=== PATIENT | male | born 1965 | race Hispanic/Latino ===

== ENCOUNTER 2016-07-26 19:07 | Observation (INO) | payer MEDICARE, MEDICAID ==
[2016-07-26 19:07] VITALS: BMI 28.7
--- NOTE | 2016-07-26 19:25 | C.PDOC ---
History Of Present Illness <Cristino Cohen - Last Filed: 07/27/16 00:46> <Cortez English Rock - Last Filed: 07/27/16 05:42> A 51 y/o male presents to the ER for ETOH Intoxication [employer]. Pt admits to drinking ETOH today. Pt denies suicidal or homicidal ideation or any physical complaint at this time. (Cristino Cohen) History Per: Patient History/Exam Limitations: intoxication Onset/Duration Of Symptoms: Hrs Current Symptoms Are (Timing): Still Present Suicide/Self Injury Attempted (Context): None Modifying Factor(s): Alcohol Severity: Mild Associated Symptoms: denies: Suicidal Thoughts, Suicidal Plan Involuntary Hold By: None Recent travel outside of the [place]: No Additional History Per: Patient <Cristino Cohen - Last Filed: 07/27/16 00:46> <Cortez English - Last Filed: 07/27/16 05:42> Time Seen by Provider: 07/26/16 19:15 Past Medical History Reviewed: Historical Data, Nursing Documentation, Vital Signs - Medical History PMH: Bipolar Disorder, Bronchitis, COPD, Depression, Fractures (ribs fractured in 2003) Denies: Anxiety, Diabetes, Hepatitis, HIV, HTN, Personality Disorder, Chronic Kidney Disease, Schizophrenia, Seizures, Sexually Transmitted Disease Surgical History: Hernia Repair (umbilical and abdominal) Family History: States: Unknown Family Hx - Social History Hx Tobacco Use: Yes Hx Alcohol Use: Yes Hx Substance Use: Yes - Immunization History Hx Tetanus Toxoid Vaccination: No Hx Influenza Vaccination: No Hx Pneumococcal Vaccination: No <Cristino Cohen - Last Filed: 07/27/16 00:46> Review Of Systems Constitutional: Positive for: Other (ETOH intoxication). Negative for: Fever, Chills Cardiovascular: Negative for: Chest Pain, Palpitations Respiratory: Negative for: Shortness of Breath Gastrointestinal: Negative for: Nausea, Vomiting, Abdominal Pain, Diarrhea Psych: Negative for: Suicidal ideation, Withdrawal <Cristino Cohen - Last Filed: 07/27/16 00:46> Physical Exam - Physical Exam Appears: No Acute Distress, Other (ETOH intoxicated. + AOB) Skin: Warm, Dry, No Rash Head: Atraumatic, Normacephalic Eye(s): bilateral: Normal Inspection, PERRL Oral Mucosa: Moist Neck: Supple Chest: Symmetrical, No Tenderness Cardiovascular: Rhythm Regular Respiratory: Other (Clear to auscultation bilaterally) Gastrointestinal/Abdominal: Soft, No Tenderness, No Distention Back: No CVA Tenderness Extremity: No Deformity, No Swelling Pulses: Left Radial: Normal (Radial pulse 2+ bilaterally.), Right Radial: Normal (Radial pulse 2+ bilaterally.) Neurological/Psych: Other (Alert and awake, no focal deficit) <Cristino Cohen - Last Filed: 07/27/16 00:46> Medical Decision Making <Cristino Cohen - Last Filed: 07/27/16 00:46> <Cortez English - Last Filed: 07/27/16 05:42> Medical Decision Making: Impression: 51 y/o male comes in for ETOH intoxication today Plans: -ED Obs -Reassess (Cristino Cohen) ED OBSERVATION Date of observation admission: 07/26/16 Time of observation admission: 19:36 <Cristino Cohen - Last Filed: 07/27/16 00:46> <Cortez English - Last Filed: 07/27/16 05:42> - Observation admission statement Patient is being placed in observation because:: ETOH intoxication (Cristino Cohen) - Goals of Observation Goals of observation are:: ETOH Sobriety (Cristino Cohen) - Progress Note Progress Note: 1936 No acute distress. 2130 Sleeping, no acute distress. 2330 Intoxicated, no acute distress. 0046 Sleeping, remains intoxicated. Will sign out to ER night team. (Cristino Cohen) Disposition <Cristino Cohen - Last Filed: 07/27/16 00:46> Counseled Patient/Family Regarding: Diagnosis - Disposition Disposition Time: 05:42 - POA Present On Arrival: None <Cortez English - Last Filed: 07/27/16 05:42> - Disposition Disposition: HOME/ ROUTINE Condition: STABLE - Clinical Impression Clinical Impression: Alcohol abuse - Scribe Statement The provider has reviewed the documentation as recorded by the Scribe <Cristino Cohen - Last Filed: 07/27/16 00:46> <Cortez English - Last Filed: 07/27/16 05:42> - Scribe Statement Gricelda ratliff All medical record entries made by the Scribe were at my direction and personally dictated by me. I have reviewed the chart and agree that the record accurately reflects my personal performance of the history, physical exam, medical decision making, and the department course for this patient. I have also personally directed, reviewed, and agree with the discharge instructions and disposition. (Vicki,Cristino Campos)
[2016-07-27 05:40] VITALS: BP 146/86; PULSE 97; RESP 20; TEMP 98.6; O2SAT 98
== END 2016-07-27 05:41 | disposition home or self-care (01) ==
LOC: C.ER 19:07 → C.9OBSV 19:36
PROVIDERS: ADMIT Student in an Organized Health Care Education/Training Program; ATTEND Student in an Organized Health Care Education/Training Program
DX: F10.129 Alcohol abuse with intoxication, unspecified (principal); Z87.891 Personal history of nicotine dependence; J44.9 Chronic obstructive pulmonary disease, unspecified; F31.9 Bipolar disorder, unspecified
CPT/HCPCS: 96372; 99284; G0378; J1630; J2060

== ENCOUNTER 2016-07-31 23:27 | Emergency (ER) | payer MEDICARE, MEDICAID ==
[2016-07-31 23:27] VITALS: BMI 28.7
[2016-07-31 23:42] VITALS: BP 117/75; PULSE 85; RESP 20; TEMP 98.6; O2SAT 96
--- NOTE | 2016-08-01 01:31 | C.PDOC ---
History Of Present Illness Patient is a 51 year old male who presents to the ER requesting detox from ETOH and heroin. Patient states he uses both daily and makes note that he sniffs the heroin. Denies any physical complaints at this time. Chief Complaint (Nursing): Substance Abuse History Per: Patient History/Exam Limitations: no limitations Onset/Duration Of Symptoms: Hrs Current Symptoms Are (Timing): Still Present Suicide/Self Injury Attempted (Context): None Modifying Factor(s): Alcohol, Narcotics Associated Symptoms: denies: Depression, Suicidal Thoughts, Suicidal Plan Involuntary Hold By: None Recent travel outside of the [place]: No Past Medical History Reviewed: Historical Data, Nursing Documentation, Vital Signs Vital Signs: Last Vital Signs Temp 98.6 F 07/31/16 23:37 Pulse 85 07/31/16 23:37 Resp 20 07/31/16 23:37 BP 117/75 07/31/16 23:37 Pulse Ox 96 08/01/16 01:37 - Medical History PMH: Back Problems (chronic), Bipolar Disorder, Bronchitis, COPD, Depression, Fractures (ribs fractured in 2003) Surgical History: Hernia Repair (umbilical and abdominal) - [email or web address] Procedures ALCOHOL DETOXIFICATION (02/09/14) EXCISE CORD/EPID LES NEC (11/10/13) GROUP PSYCHOTHERAPY (09/13/15) MEDICATION MANAGEMENT (09/13/15) NON-INVASIVE MECHANICAL VENTILATION (06/27/12) OTH & OPEN REP OTH HERNIA OF ANTER ABD WALL W GRF OR PROSTH (06/27/12) OTH & OPEN REPAIR INDIRECT INGUINAL HERNIA W GRFT OR PROSTH (11/10/13) Family History: States: Unknown Family Hx - Social History Hx Tobacco Use: Yes Hx Alcohol Use: Yes Hx Substance Use: Yes - Immunization History Hx Tetanus Toxoid Vaccination: No Hx Influenza Vaccination: No Hx Pneumococcal Vaccination: No Review Of Systems Constitutional: Negative for: Fever, Chills Gastrointestinal: Negative for: Nausea, Vomiting, Diarrhea Physical Exam - Physical Exam Appears: Non-toxic, No Acute Distress Skin: Normal Color, Warm, Dry Head: Atraumatic, Normacephalic Oral Mucosa: Moist Chest: Symmetrical, No Tenderness Cardiovascular: Rhythm Regular, No Murmur Respiratory: Normal Breath Sounds, No Rales, No Rhonchi, No Wheezing Gastrointestinal/Abdominal: Soft, No Tenderness Neurological/Psych: Oriented x3, Normal Speech, Normal Cognition ED Course And Treatment O2 Sat by Pulse Oximetry: 96 (Room air) Pulse Ox Interpretation: Normal Progress Note: Crisis was consulted, no detox beds are available at this time, patient given referral for other detox sites. Disposition - Disposition Referrals: [facility] [Outside] [facility] [Outside] Disposition: HOME/ ROUTINE Disposition Time: 23:55 Condition: GOOD Additional Instructions: Yhank you for letting us take care of you today. The emergency medical care you received today was directed at your acute symptoms. If you were prescribed any medication, please fill it and take as directed. It may take several days for your symptoms to resolve. Return to the Emergency Department if your symptoms worsen, do not improve, or if you have any other problems. Please contact your doctor or call one of the physicians/clinics you have been referred to that are listed on the Patient Visit Information form that is included in your discharge packet. Bring any paperwork you were given at discharge with you along with any medications you are taking to your follow up visit. Our treatment cannot replace ongoing medical care by a primary care provider (PCP) outside of the emergency department. Thank you for allowing the [facility] team to be part of your care today. Call the hospital in the morning to check on availability of detox beds. Instructions: Polysubstance Abuse (ED) - Clinical Impression Clinical Impression: Drug dependence - Scribe Statement The provider has reviewed the documentation as recorded by the Scriblandy Perkins All medical record entries made by the Scribe were at my direction and personally dictated by me. I have reviewed the chart and agree that the record accurately reflects my personal performance of the history, physical exam, medical decision making, and the department course for this patient. I have also personally directed, reviewed, and agree with the discharge instructions and disposition.
== END 2016-08-01 00:13 | disposition home or self-care (01) ==
LOC: C.ER 23:27
DX: F19.20 Other psychoactive substance dependence, uncomplicated (principal)

== ENCOUNTER 2016-08-04 23:37 | Emergency (ER) | payer MEDICARE, MEDICAID ==
[2016-08-04 23:37] VITALS: BMI 28.7
[2016-08-04 23:56] VITALS: BP 90/48; PULSE 96; RESP 20; TEMP 98.4; O2SAT 96
== END 2016-08-05 | disposition left against medical advice (07) ==
LOC: C.ER 23:37
DX: Z02.89 Encounter for other administrative examinations (principal); Z00.00 Encounter for general adult medical examination without abnormal findings

== ENCOUNTER 2016-08-07 14:29 | Inpatient (IN) | payer MEDICARE, MEDICAID ==
[2016-08-07 14:29] VITALS: BMI 28.7
[2016-08-07 15:23] LABS: BASO # 0.1 K/uL (0.0-0.2); BASO % 0.6 % (0.0-2.0); EOS # 0.2 K/uL (0.0-0.7); EOS % 1.7 % (0.0-4.0); HEMATOCRIT 46.1 % (35.0-51.0); LYMPH % 28.7 % (20.0-40.0); MEAN CELL VOLUME 94.3 fL (80.0-94.0); MEAN CORPUSCULAR HEMOGLOBIN 31.7 pg (27.0-31.0); MEAN CORPUSCULAR HGB CONC 33.6 g/dL (33.0-37.0); MEAN PLATELET VOLUME 8.5 fL (7.2-11.7); MONO # 1.1 K/uL (0.0-0.8); MONO % 10.6 % (0.0-10.0); RED CELL DISTRIBUTION WIDTH 16.8 % (11.5-14.5); WHITE BLOOD COUNT 10.6 K/uL (4.8-10.8)
[2016-08-07 15:32] LABS: CHLORIDE 95 mmol/L (98-107)
[2016-08-07 15:33] LABS: POTASSIUM 3.3 mmol/L (3.6-5.2); SODIUM 130 mmol/L (132-148)
[2016-08-07 15:35] LABS: ALB/GLOB RATIO 1.3 (1.0-2.1); ALKALINE PHOSPHATASE 104 U/L (38-126); AST/SGOT 110 U/L (17-59); BILIRUBIN,TOTAL 0.9 mg/dL (0.2-1.3); CARBON DIOXIDE 20 mmol/L (22-30); GFR AFRICAN-AMERICAN > 60; TOTAL PROTEIN 6.7 g/dL (6.3-8.3)
[2016-08-07 15:36] LABS: ALCOHOL SERUM 293 mg/dl (0-10); ALT/SGPT 122 U/L (21-72); BLOOD UREA NITROGEN 8 mg/dL (9-20); CALCIUM 8.2 mg/dl (8.6-10.4); GLUCOSE,RANDOM 99 mg/dL (75-110)
[2016-08-07 15:55] LABS: RBC URINE 5 /hpf (0-3); URINE BACTERIA RARE (<OCC); URINE BILIRUBIN NEGATIVE (NEGATIVE); URINE BLOOD 1+ (NEGATIVE); URINE COLOR Yellow (YELLOW); URINE GLUCOSE (UA) NORMAL (Normal); URINE HYALINE CAST >20 /lpf (0-2); URINE KETONE NEGATIVE (NEGATIVE); URINE LEUKOCYTE ESTERASE TRACE Leu/uL (Negative); URINE UROBILINOGEN NORMAL mg/dL (0.2-1.0); WBC URINE 1 /hpf (0-5)
[2016-08-07 15:58] LABS: URINE PROTEIN TRACE mg/dL (NEGATIVE)
[2016-08-07] MEDS ORDERED: Potassium Chloride 20 mEq ER Tab PO STA (16:41)
--- NOTE | 2016-08-07 16:44 | C.PDOC ---
History Of Present Illness <Radha Jones - Last Filed: 08/07/16 18:45> <Cortez English - Last Filed: 08/07/16 20:26> 51 y/o male with Hx of ETOH abuse and Heroin use presents to ED requesting Detox and complaints of mild lower back pain. Patient reports last drink was 2 hours ago and last Heroin use was 2 days ago. Patient denies n/v/d, numbness, weakness, tremors or any other complaints at this time. (Radha Jones) History Per: Patient History/Exam Limitations: no limitations Onset/Duration Of Symptoms: Days Modifying Factor(s): Alcohol <Radha Jones - Last Filed: 08/07/16 18:45> <Cortez English - Last Filed: 08/07/16 20:26> Time Seen by Provider: 08/07/16 14:52 Chief Complaint (Nursing): Substance Abuse Past Medical History Reviewed: Historical Data, Nursing Documentation, Vital Signs - Medical History PMH: Back Problems (chronic), Bipolar Disorder, Bronchitis, COPD, Depression, Fractures (ribs fractured in 2003) Surgical History: Hernia Repair (umbilical and abdominal) Family History: States: Unknown Family Hx - Social History Hx Tobacco Use: Yes Hx Alcohol Use: Yes Hx Substance Use: Yes - Immunization History Hx Tetanus Toxoid Vaccination: No Hx Influenza Vaccination: No Hx Pneumococcal Vaccination: No <Radha Jones - Last Filed: 08/07/16 18:45> Review Of Systems Except As Marked, All Systems Reviewed And Found Negative. Constitutional: Negative for: Fever, Chills Gastrointestinal: Negative for: Nausea, Vomiting, Diarrhea Skin: Negative for: Rash Neurological: Negative for: Weakness, Numbness Psych: Negative for: Anxiety <Radha Jones - Last Filed: 08/07/16 18:45> Physical Exam - Physical Exam Appears: Well, No Acute Distress Skin: Normal Color, Warm, No Rash Head: Atraumatic, Normacephalic Eye(s): bilateral: Normal Inspection, PERRL, EOMI Oral Mucosa: Moist Neck: Normal ROM, No Midline Cervical Tenderness, No Paracervical Tenderness, Supple Chest: Symmetrical, No Tenderness Cardiovascular: Rhythm Regular, No Murmur Respiratory: Normal Breath Sounds, No Rales, No Rhonchi, No Wheezing Gastrointestinal/Abdominal: Soft, No Tenderness, No Guarding, No Rebound Back: No CVA Tenderness, No Vertebral Tenderness, No Paraspinal Tenderness Extremity: Normal ROM, Capillary Refill (<2 seconds), No Swelling Pulses: Left Dorsalis Pedis: Normal, Right Dorsalis Pedis: Normal Neurological/Psych: Oriented x3, Normal Speech, Normal Motor, Normal Sensation Gait: Steady <Radha Jones - Last Filed: 08/07/16 18:45> ED Course And Treatment - Laboratory Results Result Diagrams: 08/07/16 15:19 08/07/16 15:19 O2 Sat by Pulse Oximetry: 100 (RA) Pulse Ox Interpretation: Normal <Radha Jones - Last Filed: 08/07/16 18:45> - Laboratory Results Result Diagrams: 08/07/16 15:19 08/07/16 15:19 <Cortez English - Last Filed: 08/07/16 20:26> Medical Decision Making <Radha Jones - Last Filed: 08/07/16 18:45> <Cortez English - Last Filed: 08/07/16 20:26> Medical Decision Making: The potassium is slightly low, potassium tab given. Sodium is only mildly low, will not treat. Patient is medically cleared. Patient given meal and juice in the ED, The patient was evaluated by the crisis team and patient is pending sobriety for detox admission. (Radha Jones) Disposition - Disposition Disposition Time: 18:44 <Radha Jones - Last Filed: 08/07/16 18:45> Discussed With : Jennifer Amin Doctor Will See Patient In The: Hospital Counseled Patient/Family Regarding: Diagnosis - Disposition Disposition Time: 20:26 <Cortez English - Last Filed: 08/07/16 20:26> - Disposition Disposition: HOSPITALIZED Condition: STABLE - Clinical Impression Clinical Impression: Alcohol dependence, Opiate dependence - PA / TRANSIT SPECIALIST / Resident Statement MD/DO has reviewed & agrees with the documentation as recorded. - Scribe Statement The provider has reviewed the documentation as recorded by the Scribe <Radha Jones - Last Filed: 08/07/16 18:45> <Cortez English - Last Filed: 08/07/16 20:26> - Scribe Statement Deena Ayoub All medical record entries made by the Scribe were at my direction and personally dictated by me. I have reviewed the chart and agree that the record accurately reflects my personal performance of the history, physical exam, medical decision making, and the department course for this patient. I have also personally directed, reviewed, and agree with the discharge instructions and disposition. (Radha Jones) Physician Patient Turnover Patient Signed Over To: Cortez English Handoff Comments: Pending sobriety and disposition <Radha Jones - Last Filed: 08/07/16 18:45>
[2016-08-07] MEDS ORDERED: Potassium Chloride 20 mEq ER Tab PO ONE (16:48)
[2016-08-07] MEDS ORDERED: Buprenorphine Hydrochloride 2 mg SL ONE ×2 (21:16→22:20)
[2016-08-07 21:38] VITALS: RESP 18
[2016-08-08] MEDS: Buprenorphine Hydrochloride 2 mg SL SCH (10:42)
[2016-08-09] MEDS: Buprenorphine Hydrochloride 2 mg SL SCH (09:28)
--- NOTE | 2016-08-09 20:57 | PCM.PSYCH ---
Initial Psychiatric Evaluation - Initial Psychiatric Evaluation Legal Status: Capacity Chief Complaint (in patient's own words): i need to get off heroin! Patient's Reaction to Hospitalization: I am glad I could get a bed History of Present Illness and Precipitating Events: Pt is a 51 years old single domiciled malewhose drug of choice is heroin. he had been prescribed perocet 10 mg po qid but he did not use them appropriately. he started using heroin about 8 months ago. he uses on the average 15 bags of heroin a day. he also abuses alcohol. he started drinking age 11 and it became a problem in hius 40s. he drink only for detox, but he is prescribed xanax 1 mg po tid and ambien 10 mg po qhs. it is unclear if this is by pcp ora psychiatrist. he has been in 2 formal detoxes one in [place] and one at [facility]. he drinks a case of beer a day and seveeral fireballs day. he states he was in but for detox only. he has been at 2 other detoxes in [place] and at [facility]. Parents are . He has 5 sisters and he is the oldest. mother was an alcoholic. maternal grandfather was ikn a psych hospital but pt does not know why. his father frfom alcohol. pt has no history. he was charged with assault and spent a wseek in penitentiary. he states he has no medical problems. he is prescribed ambien and xanax but unclear by who.pt went up to 3rd grade. 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 Current Medications: Active Medications Generic Name Dose Route Start Last Admin Trade Name Grupoq PRN Reason Stop Dose Admin Buprenorphine HCl 4 mg 08/08/16 10:00 08/09/16 09:28 Subutex SL 08/11/16 09:59 4 mg DAILY GRETA Administration Taper Gabapentin 300 mg 08/07/16 21:03 08/09/16 17:51 Neurontin PO 300 mg TID GRETA Administration Hydroxyzine HCl 25 mg 08/07/16 21:05 08/09/16 14:54 Atarax PO 25 mg Q6 PRN Administration Anxiety Lorazepam 1 mg 08/07/16 21:03 08/09/16 11:15 Ativan PO 1 mg Q6 PRN Administration alcohol withdrawal Lorazepam 1 mg 08/09/16 12:00 08/09/16 17:52 Ativan PO 08/12/16 11:59 1 mg BID GRETA Administration Taper Nicotine 1 patch 08/08/16 10:00 08/09/16 09:28 Nicoderm Cq TD 1 patch DAILY GRETA Administration Trazodone HCl 50 mg 08/07/16 21:03 08/08/16 22:22 Desyrel PO 50 mg HS PRN Administration Insomnia Past Psychiatric History - Past Psychiatric History Prior Psychiatric Treatment: see hpi Pertinent Medical Hx (Current Medical&Sleep Prob, Allergies): Allergies Allergy/AdvReac Type Severity Reaction Status Date / Time No Known Allergies Allergy Verified 08/07/16 14:37 Oxycodone HCl/Acetaminophen [Percocet 325 mg-7.5 mg] 1 tab PO PRN PRN 09/01/15 Zolpidem [Ambien] 5 mg PO HS 09/13/15 Gabapentin [Neurontin] 100 mg PO BID #30 cap 09/17/15 Review of Systems - Constitutional Constitutional: Chills, Sweats, Malaise - EENT Eyes: UNREMARKABLE Ears: UNREMARKABLE Nose/Mouth/Throat: UNREMARKABLE - Cardiovascular Cardiovascular: UNREMARKABLE - Respiratory Respiratory: UNREMARKABLE - Gastrointestinal Gastrointestinal: Cramping, Diarrhea - Genitourinary Genitourinary: UNREMARKABLE - Reproductive: Male Reproductive:Male: UNREMARKABLE - Musculoskeletal Musculoskeletal: Arthralgias, Myalgias - Integumentary Integumentary: UNREMARKABLE - Neurological Neurological: UNREMARKABLE - Psychiatric Psychiatric: UNREMARKABLE - Endocrine Endocrine: UNREMARKABLE - Hematologic/Lymphatic Hematologic: UNREMARKABLE Mental Status Examination - Personal Presentation Personal Presentation: Looks stated age - Affect Affect: Constricted - Motor Activity Motor Activity: Calm - Reliability in Providing Information Reliability in Providing Information: Good - Speech Speech: Organized, Coherent - Mood Mood: Anxious - Formal Thought Process Formal Thought Process: No Impairment - Obsessions/Compulsions Obsessions: None Compulsions: None - Cognitive Functions Orientation: Person, Place, Situation, Time Sensorium: Alert Attention/Concentration: Attentive Abstract Thinking: Broadbent Estimate of Intelligence: Average Judgement: Intact, as evidence by: Good judgement, Intact, as evidence by: Insight regarding need for hospitalization Memory: Recent intact, as evidence by: Ability to recall events of the day, Remote intact, as evidenced by: Abilit to recall sig. life events - Risk Risk: Withdrawal - Strength & Assets Inventory Strength & Assets Inventory: Intelligence, Employment history - Limitations Limitations: Living alone DSM 5 DX - DSM 5 DSM 5 Diagnosis: opiate withdraqal opiate usec disorder severe alcohol withdrawal alcohol use disorder - Recommended/Plan of Treatment Treatment Recommendations and Plan of Treatment: opiate withdrawal subutex groups supportive psychotherapy [place] CBT opiate use disorder groups, [place] CBT supportive psychotherapy alcohol withdrawal ativan groups supportive psychotherapy [place] CBT alcohol use disorder supportive psychotherapy groups Projected ELOS: 5 days Prognosis: fair with treatment Discharge Plan and Discharge Criteria: no acwithdrawal symptoms - Smoking Cessation Smoking Cessation Initiated: Yes
--- NOTE | 2016-08-09 21:11 | PCM.PYCHPN ---
Psychiatric Progress Note - Psychiatric Progress Note Patient seen today, length of contact: 15 min Patient Chief Complaint: i need to get off heroin! Problems Identified/Issues Discussed: withdrawal symp=toms PAWS triggers Medical Problems: nothing acute Diagnostic Results: reviewed DSM 5 Symptoms Update: anxious Medication Change: Yes (subutex ativrs) Medical Record Reviewed: Yes Mental Status Examination - Cognitive Function Orientation: Person, Place, Situation, Time Memory: Intact Attention: WNL Concentration: WNL Association: WNL Fund of Knowledge: WNL - Mood Mood: Anxious - Affect Affect: Broad - Speech Speech: Appropriate - Formal Thought Process Formal Thought Process: No Impairment - Suicidal Ideation Suicidal Ideation: No - Homicidal Ideation Homicidal Ideation: No Goal/Treatment Plan - Goal/Treatment Plan Need for Continued Stay: Discharge may exacerbated symptoms Progress Toward Problem(s) and Goals/Treatment Plan: opiate withdrawal subutex groups supportive psychotherapy [place] CBT opiate use disorder groups, [place] CBT supportive psychotherapy alcohol withdrawal ativan groups supportive psychotherapy [place] CBT alcohol use disorder supportive psychotherapy groups Estimated Date of D/C: 08/11/16 - Smoking Cessation Smoking Cessation Initiated: Yes
[2016-08-10] MEDS: Buprenorphine Hydrochloride 2 mg SL SCH (09:54)
--- NOTE | 2016-08-10 14:05 | PCM.PYCHPN ---
Psychiatric Progress Note - Psychiatric Progress Note Patient seen today, length of contact: 17 min Patient Chief Complaint: "I need help" Problems Identified/Issues Discussed: The pt is seen, chart reviewed, case discussed with staff. Support given, CBT and OK used briefly No new symptoms reported, improving slowly and needs some more time No SEs from medications, risks discussed. After care discussed - interested in IOP at [facility], incl. SBX tx or Vivitrol. He showed the parts data writer his scrotum which had a huge swelling. Uro consult and USG to be done. Medication Change: Yes (detox changes daily) Medical Record Reviewed: Yes Mental Status Examination - Cognitive Function Orientation: Person, Place, Situation, Time Memory: Intact Attention: WNL Concentration: WNL Association: WNL Fund of Knowledge: WNL - Mood Mood: Anxious - Affect Affect: Broad - Speech Speech: Appropriate - Formal Thought Process Formal Thought Process: No Impairment - Suicidal Ideation Suicidal Ideation: No - Homicidal Ideation Homicidal Ideation: No Goal/Treatment Plan - Goal/Treatment Plan Need for Continued Stay: Discharge may exacerbated symptoms, Severe functional impairment Progress Toward Problem(s) and Goals/Treatment Plan: Continue detox Support and psychoed [place] and CBT Referral by counselors Attend groups and activities Estimated Date of D/C: 08/12/16
--- NOTE | 2016-08-10 17:08 | US ---
HISTORY: Enlarged Right Testicle TECHNIQUE: Realtime sonography through the scrotum with color and doppler flow. COMPARISON: Testicular ultrasound performed 11/09/13 FINDINGS: RIGHT TESTICLE: Measures 5.0 x 2.3 x 2.6 cm. Homogeneous echotexture. Blood flow is demonstrated. RIGHT EPIDIDYMIS: Not visualized. LEFT TESTICLE: Measures 3.5 x 2.3 x 2.3 cm. Heterogeneous echotexture. Blood flow is demonstrated. LEFT EPIDIDYMIS: Measures approximately 1.6 x 0.9 x 0.9 cm. HYDROCELE: Simple left-sided hydrocele. Complex right large hydrocele containing innumerable mobile foci/internal echoes. VARICOCELE: Left-sided varicocele. OTHER FINDINGS: None. IMPRESSION: Complex large right sided hydrocele. Simple small to moderate left-sided hydrocele. Correlate clinically. Left-sided varicocele. The right epididymis is not visualized.
[2016-08-10 17:57] LABS: CHLORIDE 99 mmol/L (98-107); POTASSIUM 4.3 mmol/L (3.6-5.2); SODIUM 133 mmol/L (132-148)
[2016-08-10 17:59] LABS: GFR AFRICAN-AMERICAN > 60
[2016-08-10 18:00] LABS: ALB/GLOB RATIO 1.1 (1.0-2.1); ALKALINE PHOSPHATASE 121 U/L (38-126); ALT/SGPT 78 U/L (21-72); AST/SGOT 69 U/L (17-59); BILIRUBIN,TOTAL 0.4 mg/dL (0.2-1.3); BLOOD UREA NITROGEN 26 mg/dL (9-20); CALCIUM 8.9 mg/dl (8.6-10.4); CARBON DIOXIDE 27 mmol/L (22-30); GLUCOSE,RANDOM 89 mg/dL (75-110); TOTAL PROTEIN 6.5 g/dL (6.3-8.3)
[2016-08-10 18:01] LABS: MAGNESIUM 1.8 mg/dL (1.6-2.3)
[2016-08-11] MEDS ORDERED: Buprenorphine Hydrochloride 2 mg SL ONE (09:49)
--- NOTE | 2016-08-11 23:52 | PCM.PYCHPN ---
Psychiatric Progress Note - Psychiatric Progress Note Patient seen today, length of contact: 16 min Patient Chief Complaint: "I am still withdrawing" Problems Identified/Issues Discussed: The pt is seen, chart reviewed, case discussed with staff. The pt is compliant with medications and reports no side-effects. Symptoms are improving but needs more time to stabilize. After care discussed, support and psychoeducation given. USG done and urology contacted again - outpt f/u recommended (plus few more tests) Medication Change: Yes (detox changes daily) Medical Record Reviewed: Yes Mental Status Examination - Cognitive Function Orientation: Person, Place, Situation, Time Memory: Intact Attention: WNL Concentration: WNL Association: WNL Fund of Knowledge: WNL - Mood Mood: Anxious - Affect Affect: Broad - Speech Speech: Appropriate - Formal Thought Process Formal Thought Process: No Impairment - Suicidal Ideation Suicidal Ideation: No - Homicidal Ideation Homicidal Ideation: No Goal/Treatment Plan - Goal/Treatment Plan Need for Continued Stay: Discharge may exacerbated symptoms, Severe functional impairment Progress Toward Problem(s) and Goals/Treatment Plan: Continue detox Support and psychoed [place] and CBT Referral by counselors Attend groups and activities Follow up with uro Estimated Date of D/C: 08/12/16
--- NOTE | 2016-08-12 09:32 | PCM.PYCHDC ---
Mental Status Examination - Mental Status Examination Orientation: Person, Place, Situation, Time Memory: Intact Mood: Anxious Affect: Constricted Speech: Appropriate Attention: WNL Concentration: Poor Association: WNL Fund of Knowledge: WNL Formal Thought Process: No Impairment Suicidal Ideation: No Current Homicidal Ideation?: No Discharge Summary - Discharge Note Reason for Hospitalization: Opioid and alcohol detox Laboratory Data: Abnormal Lab Results 08/11/16 08/11/16 08/11/16 14:04 18:11 18:11 Alpha Fetoprotein 4.1 Beta HCG, Quant < 2.39 Urine HCG, Qual Negative Consultations:: List each consultation separately and include: 1. Reason for request. 2. Findings. 3. Follow-up Summary of Hospital Course include:: 1. Description of specific treatment plan utilized for patients during their course of treatmen. 2. Summarize the time- course for resolution of acute symptoms and/or regressed behaviors. 3. Describe issues identified and worked on during hospitalization. 4. Describe medication utilized. 5. Describe medical problems identified and treated. 6. Reassessment of suicide risk Summary of Hospital Course: The pt was admitted and started on treatment with psychotherapy, support, psychoeducation and medications. IL and CBT used. The pt attended groups and activities, as well as milieu therapy. All the risks and benefits of medications are discussed and the patient understood and agreed. After care discussed with the patient. He will go to [facility] he also had a huge cystocel in his scrotum and uro consulted and will f/iu as an outpt - Final Diagnosis (DSM 5) Condition upon Discharge: STABLE DSM 5: opiate withdraqal opiate use disorder severe alcohol withdrawal alcohol use disorder - severe Anxiety d/o - unspecified Disposition: HOME/ ROUTINE Follow-up Treatment Plan: Continue below medications after discharge. Follow after care plan as discussed. Use relapse prevention skills Return to ER or call 911 if suicidal, homicidal or symptoms relapse. Stay away from stress, alcohol and drugs. See primary doctor once a year. See urologist, Dr Hayden on 08/12 Prescriptions/Medication Reconciliation: Gabapentin [Neurontin] 300 mg PO TID #90 cap traZODone [Desyrel] 50 mg PO HS PRN #30 tab PRN Reason: Insomnia - Smoking Cessation Smoking Cessation Medication prescribed: No - Antipsychotic Medications Pt discharged on 2 or more routine antipsychotic medications: No
[2016-08-12 11:05] VITALS: BP 118/74; PULSE 78; TEMP 98; O2SAT 99
== END 2016-08-12 10:15 | disposition home or self-care (01) | DRG 895 ==
LOC: C.ER 14:29 → C.7D 20:27
PROVIDERS: ADMIT Psychiatry & Neurology Psychiatry; ATTEND Psychiatry & Neurology Psychiatry
PROC: HZ2ZZZZ Detoxification Services for Substance Abuse Treatment (ICD-10-PCS; principal; 2016-08-07)
PROC: HZ52ZZZ Individual Psychotherapy for Substance Abuse Treatment, Cognitive-Behavioral (ICD-10-PCS; 2016-08-07)
PROC: HZ59ZZZ Individual Psychotherapy for Substance Abuse Treatment, Supportive (ICD-10-PCS; 2016-08-07)
PROC: HZ56ZZZ Individual Psychotherapy for Substance Abuse Treatment, Psychoeducation (ICD-10-PCS; 2016-08-07)
DX: F11.23 Opioid dependence with withdrawal (principal); F31.9 Bipolar disorder, unspecified; F10.230 Alcohol dependence with withdrawal, uncomplicated; J44.9 Chronic obstructive pulmonary disease, unspecified; M54.5 Low back pain; E87.6 Hypokalemia; F41.9 Anxiety disorder, unspecified; Z81.1 Family history of alcohol abuse and dependence; Z87.891 Personal history of nicotine dependence

== ENCOUNTER 2016-11-23 23:10 | Emergency (ER) | payer MEDICARE ==
[2016-11-23 23:10] VITALS: BMI 28.7
[2016-11-23 23:14] VITALS: BP 126/78; PULSE 88; RESP 16; TEMP 97.5; O2SAT 96
[2016-11-23] MEDS ORDERED: Bacitracin 500 Units/gm Oint Foilpak UD ONE (23:34)
--- NOTE | 2016-11-24 00:13 | CT ---
EXAM: CT Head Without Intravenous Contrast CLINICAL HISTORY: 51 years old, male; Pain; Headache; Additional info: Injury, intoxication TECHNIQUE: Axial computed tomography images of the head/brain without intravenous contrast. All CT scans at this facility use one or more dose reduction techniques, viz.: automated exposure control; ma/kV adjustment per patient size (including targeted exams where dose is matched to indication; i.e. head); or iterative reconstruction technique. COMPARISON: No relevant prior studies available. FINDINGS: Brain: Minimal atrophy. No intracranial hemorrhage. No mass. No edema. Ventricles: No hydrocephalus. Bones/joints: No acute fracture. Soft tissues: Unremarkable. Vasculature: Minimal atherosclerotic disease of intracranial arteries. Sinuses: Moderate to extensive mucosal thickening of ethmoid sinuses. Scattered mild mucosal thickening of remaining sinuses. Mastoid air cells: Partial opacification of LEFT mastoid. Orbits: Unremarkable as visualized. IMPRESSION: 1. No intracranial hemorrhage. 2. Sinus disease. 3. Mastoid disease. 4. Incidental/non-acute findings are described above.
--- NOTE | 2016-11-24 00:30 | C.PDOC ---
History Of Present Illness 51 male BIBA for evaluation of head injury and Left foot contusion sustained yesterday. Pt sts, tripped and fell at home "hit face over the corner and stub my foot". Pt sts, pain worsen over Left 1st toe today, was unable to ambulate. Otherwise, pt denies fever, chills, LOC, syncope, denies headache, visual changes, neck pain, abd. pain, N/V, denies obvious deformity, weakness, sensory or vascular deficits to B/L UEs and LEs. At the time of evaluation, appears slightly intoxicated, (+) alcohol odor. Time Seen by Provider: 11/23/16 23:13 Chief Complaint (Nursing): Lower Extremity Problem/Injury History Per: Patient Past Medical History Reviewed: Historical Data, Nursing Documentation, Vital Signs Vital Signs: Last Vital Signs Temp 97.5 F L 11/23/16 23:13 Pulse 88 11/23/16 23:13 Resp 16 11/23/16 23:13 BP 126/78 11/23/16 23:13 Pulse Ox 96 11/24/16 00:37 - Medical History PMH: Back Problems (chronic), Bipolar Disorder, Bronchitis, COPD, Depression, Fractures (ribs fractured in 2003) Denies: Anxiety, Diabetes, Hepatitis, HIV, HTN, Personality Disorder, Chronic Kidney Disease, Schizophrenia, Seizures, Sexually Transmitted Disease Surgical History: Hernia Repair (umbilical and abdominal) - [facility] Procedures ALCOHOL DETOXIFICATION (02/09/14) DETOXIFICATION SERVICES FOR SUBSTANCE ABUSE TREATMENT (08/07/16) EXCISE CORD/EPID LES NEC (11/10/13) GROUP PSYCHOTHERAPY (09/13/15) INDIV PSYCHOTHERAPY FOR SUBSTANCE ABUSE TREATMENT, SUPPORT (08/07/16) INDIV PSYCHOTHERAPY FOR SUBSTANCE ABUSE, COGNITIV BEHAVIORAL (08/07/16) INDIV PSYCHOTHERAPY FOR SUBSTANCE ABUSE, PSYCHOEDUCATION (08/07/16) MEDICATION MANAGEMENT (09/13/15) NON-INVASIVE MECHANICAL VENTILATION (06/27/12) OTH & OPEN REP OTH HERNIA OF ANTER ABD WALL W GRF OR PROSTH (06/27/12) OTH & OPEN REPAIR INDIRECT INGUINAL HERNIA W GRFT OR PROSTH (11/10/13) Family History: States: Unknown Family Hx - Social History Hx Tobacco Use: Yes Hx Alcohol Use: Yes Hx Substance Use: Yes (pt denies, yes from previous triage) - Immunization History Hx Tetanus Toxoid Vaccination: No Hx Influenza Vaccination: No Hx Pneumococcal Vaccination: No Review Of Systems Except As Marked, All Systems Reviewed And Found Negative. Constitutional: Negative for: Fever, Chills Eyes: Negative for: Vision Change ENT: Negative for: Ear Discharge, Nose Discharge Cardiovascular: Negative for: Chest Pain, Light Headedness Gastrointestinal: Negative for: Nausea, Vomiting, Abdominal Pain Genitourinary: Negative for: Incontinence Musculoskeletal: Positive for: Foot Pain. Negative for: Neck Pain, Back Pain Skin: Positive for: Lesions Neurological: Negative for: Weakness, Numbness, Altered Mental Status, Dizziness Physical Exam - Physical Exam Appears: Well, Non-toxic, No Acute Distress Skin: Normal Color, Warm, Dry Head: Atraumatic, Normacephalic Eye(s): bilateral: PERRL Nose: No Flaring, No Discharge, No Deformity, No Tenderness, No Septal Hematoma , Other ((+)Left nostril bloddy crust.) Oral Mucosa: Moist, No Drooling Tongue: Normal Appearing, No Lesions Lips: Normal Appearing, No Laceration, No Lesions Throat: No Erythema Neck: Trachea Midline, No Midline Cervical Tenderness, No Paracervical Tenderness, No Step Off Deformity, Supple Cardiovascular: Rhythm Regular, No JVD, Other ((-) carotid bruits B/L) Respiratory: Normal Breath Sounds, No Decreased Breath Sounds, No Accessory Muscle Use, No Stridor, No Wheezing Gastrointestinal/Abdominal: Soft, No Tenderness, No Distention, No Guarding Back: No CVA Tenderness, No Vertebral Tenderness Extremity: Normal ROM (B/L UEs and LEs.), Tenderness (Left foot: tenderness, mild edema over 1st distal phalanx, trace ecchymoses with bloody crust medial aspect nail, (+) subungual hematoma 50%. ) Neurological/Psych: Oriented x3, Normal Speech, Normal Motor, Normal Sensation, Normal Reflexes ED Course And Treatment O2 Sat by Pulse Oximetry: 96 - Other Rad LEFT FOOT X-Ray: Viewed By Me Interpretation: (+)1ST DISTAL PHALANX COMMINUTED FX - CT Scan/US CT HEAD W/O CONTRAST Other Rad Studies (CT/US): Read By Radiologist, Radiology Report Reviewed CT/US Interpretation: EXAM: CT Head Without Intravenous Contrast. CLINICAL HISTORY: 51 years old, male; Pain; Headache; Additional info: Injury, intoxication. TECHNIQUE: Axial computed tomography images of the head/brain without intravenous contrast. All CT scans at. this facility use one or more dose reduction techniques, viz.: automated exposure control; ma/kV. adjustment per patient size (including targeted exams where dose is matched to indication; i.e. head);. or iterative reconstruction technique. COMPARISON: No relevant prior studies available. FINDINGS: Brain: Minimal atrophy. No intracranial hemorrhage. No mass. No edema. Ventricles: No hydrocephalus. Bones/joints: No acute fracture. Soft tissues: Unremarkable. Vasculature: Minimal atherosclerotic disease of intracranial arteries. Sinuses: Moderate to extensive mucosal thickening of ethmoid sinuses. Scattered mild mucosal. thickening of remaining sinuses. Mastoid air cells: Partial opacification of LEFT mastoid. Orbits: Unremarkable as visualized. IMPRESSION: 1. No intracranial hemorrhage. 2. Sinus disease. 3. Mastoid disease. 4. Incidental/ non-acute findings are described above. Thank you for allowing us to participate in the care of your patient. Dictated and Authenticated by: Hayder Day MD. 11/24/2016 12:13 AM Eastern Time ([place] & [place]) Progress Note: On re-evaluation, pt is awake, not in any apparent distress. Afebrile hemodynamicaly stable. Non-toxic. Ambulatory in ED. PulseOx 99% RA. Head: AT/NC. Neck: Supple, (-)midline tenderness. Lungs: CTA B/L, BS equal B/ L. ABd: benign, (-) guarding, (-) rebound. Back: (-) midline tenderness. Neuorlogicaly intact. Left foot: exam c/w 1st toe contusion r/o fx. Imaging results review and c/w left 1st toe tuft fx. Offered to drain subungual hematoma Left 1st toe-pt refused. Buddt tape to Left 1/2 toes applied. cast shoe applied to left foot. Crutches given to pt w/instruction. Pt advised and ref. to f/u with Blood Donor Recruiter Supervisor in 2-3 days for re-evaluation. Return to ED if any worsening for new changes. Disposition Counseled Patient/Family Regarding: Studies Performed, Diagnosis, Need For Followup, Rx Given - Disposition Referrals: [facility] at [facility] [Outside] Podiatry Clinic [Outside] Disposition: HOME/ ROUTINE Disposition Time: 00:33 Condition: STABLE Additional Instructions: FRANCA TAPE TO TOE FOR 2-3 WEEKS CRUTCHES USE NEED FOR AMBULATION FOLLOW UP WITH [facility] CONTENT SPECIALIST AT [facility] ON WEDNESDAY FROM 12PM-3PM OR [facility] FOR FURTHER EVALUATION AND TREATMENT. RETURN TO ED AT ANY TIME IF ANY WORSENING OR NEW CHANGES. Prescriptions: Acetaminophen [Tylenol Arthritis] 650 mg PO Q6 #20 tablet.er Instructions: Toe Fracture (ED), Head Injury (ED) Forms: [employer] (Icelandic) - Clinical Impression Clinical Impression: Head injury, Toe fracture
--- NOTE | 2016-11-24 07:57 | RAD ---
PROCEDURE: Left Foot Radiographs. HISTORY: injury COMPARISON: None FINDINGS: BONES: Comminuted fracture noted of the 1st distal phalangeal tuft with mild distraction of the distal fracture fragments and associated soft tissue swelling. Moderate plantar calcaneal spur. Moderate sized Achilles calcaneal enthesophytes. JOINTS: No dislocation seen. Bony articulations appear maintained. SOFT TISSUES: See above OTHER FINDINGS: None. IMPRESSION: Comminuted fracture 1st distal phalangeal tuft as above.
== END 2016-11-24 00:56 | disposition home or self-care (01) ==
LOC: C.ER 23:10
DX: S09.90XA Unspecified injury of head, initial encounter (principal); S92.422A Displaced fracture of distal phalanx of left great toe, initial encounter for closed fracture; W01.0XXA Fall on same level from slipping, tripping and stumbling without subsequent striking against object, initial encounter; Y92.009 Unspecified place in unspecified non-institutional (private) residence as the place of occurrence of the external cause

== ENCOUNTER 2016-12-31 21:42 | Inpatient (IN) | payer MEDICARE ==
[2016-12-31 21:42] VITALS: BMI 28.7
[2016-12-31 22:34] LABS: BASO # 0.1 K/uL (0.0-0.2); BASO % 0.6 % (0.0-2.0); EOS # 0.5 K/uL (0.0-0.7); EOS % 4.3 % (0.0-4.0); HEMATOCRIT 38.3 % (35.0-51.0); LYMPH # 4.1 K/uL (1.0-4.3); LYMPH % 36.7 % (20.0-40.0); MEAN CELL VOLUME 95.6 fL (80.0-94.0); MEAN CORPUSCULAR HEMOGLOBIN 32.6 pg (27.0-31.0); MEAN CORPUSCULAR HGB CONC 34.1 g/dL (33.0-37.0); MONO # 1.4 K/uL (0.0-0.8); MONO % 12.3 % (0.0-10.0); RED CELL DISTRIBUTION WIDTH 15.1 % (11.5-14.5); WHITE BLOOD COUNT 11.1 K/uL (4.8-10.8)
[2016-12-31 22:55] LABS: ALB/GLOB RATIO 1.2 (1.0-2.1); ALCOHOL SERUM 252 mg/dl (0-10); ALKALINE PHOSPHATASE 82 U/L (38-126); ALT/SGPT 43 U/L (21-72); AST/SGOT 48 U/L (17-59); BILIRUBIN,TOTAL 0.7 mg/dL (0.2-1.3); BLOOD UREA NITROGEN 9 mg/dL (9-20); CALCIUM 8.8 mg/dl (8.6-10.4); CARBON DIOXIDE 21 mmol/L (22-30); CHLORIDE 96 mmol/L (98-107); GFR AFRICAN-AMERICAN > 60; GLUCOSE,RANDOM 74 mg/dL (75-110); POTASSIUM 3.3 mmol/L (3.6-5.2); SODIUM 130 mmol/L (132-148); TOTAL PROTEIN 7.1 g/dL (6.3-8.3)
[2016-12-31 23:18] LABS: RBC URINE 2 /hpf (0-3); URINE BILIRUBIN NEGATIVE (NEGATIVE); URINE BLOOD 1+ (NEGATIVE); URINE COLOR Straw (YELLOW); URINE GLUCOSE (UA) NORMAL (Normal); URINE KETONE NEGATIVE (NEGATIVE); URINE LEUKOCYTE ESTERASE NEG Leu/uL (Negative); URINE PROTEIN NEGATIVE (NEGATIVE); URINE UROBILINOGEN NORMAL mg/dL (0.2-1.0); WBC URINE < 1 /hpf (0-5)
--- NOTE | 2017-01-01 00:13 | C.PDOC ---
History Of Present Illness <CodyJeremy Rosario - Last Filed: 01/01/17 00:21> <Nancie Stewart - Last Filed: 01/01/17 02:38> 51 y/o male brought to ED by EMS and 4 [place] police officers for bizarre public behavior and SI/HI. Patient denies any physical complaints at this time. (Jeremy oRss) History Per: Patient History/Exam Limitations: no limitations Onset/Duration Of Symptoms: Hrs Current Symptoms Are (Timing): Still Present Suicide/Self Injury Attempted (Context): None Modifying Factor(s): None Associated Symptoms: Anger, Agitation <Jeremy Ross - Last Filed: 01/01/17 00:21> <Nancie Stewart - Last Filed: 01/01/17 02:38> Time Seen by Provider: 12/31/16 22:16 Chief Complaint (Nursing): Psychiatric Evaluation Past Medical History Reviewed: Historical Data, Nursing Documentation, Vital Signs - Medical History PMH: Anxiety, Back Problems (chronic), Bipolar Disorder, Bronchitis, COPD, Depression, Fractures (ribs fractured in 2003) Surgical History: Hernia Repair (umbilical and abdominal) Family History: States: Unknown Family Hx - Social History Hx Tobacco Use: Yes Hx Alcohol Use: Yes Hx Substance Use: Yes (pt denies, yes from previous triage) - Immunization History Hx Tetanus Toxoid Vaccination: No Hx Influenza Vaccination: No Hx Pneumococcal Vaccination: No <CodyLucasIsrael - Last Filed: 01/01/17 00:21> Vital Signs: Last Vital Signs Temp 98.3 F 01/01/17 02:02 Pulse 98 H 01/01/17 02:02 Resp 20 01/01/17 02:02 BP 129/71 01/01/17 02:02 Pulse Ox 97 01/01/17 02:02 - [facility] Procedures ALCOHOL DETOXIFICATION (02/09/14) DETOXIFICATION SERVICES FOR SUBSTANCE ABUSE TREATMENT (08/07/16) EXCISE CORD/EPID LES NEC (11/10/13) GROUP PSYCHOTHERAPY (09/13/15) INDIV PSYCHOTHERAPY FOR SUBSTANCE ABUSE TREATMENT, SUPPORT (08/07/16) INDIV PSYCHOTHERAPY FOR SUBSTANCE ABUSE, COGNITIV BEHAVIORAL (08/07/16) INDIV PSYCHOTHERAPY FOR SUBSTANCE ABUSE, PSYCHOEDUCATION (08/07/16) MEDICATION MANAGEMENT (09/13/15) NON-INVASIVE MECHANICAL VENTILATION (06/27/12) OTH & OPEN REP OTH HERNIA OF ANTER ABD WALL W GRF OR PROSTH (06/27/12) OTH & OPEN REPAIR INDIRECT INGUINAL HERNIA W GRFT OR PROSTH (11/10/13) Review Of Systems Constitutional: Negative for: Fever, Chills Cardiovascular: Negative for: Chest Pain Respiratory: Negative for: Shortness of Breath Gastrointestinal: Negative for: Nausea, Vomiting Skin: Negative for: Rash Psych: Positive for: Anxiety, Suicidal ideation <Jeremy Ross - Last Filed: 01/01/17 00:21> Physical Exam - Physical Exam Appears: Non-toxic, Other (Bizarre, loud, argumentive. Many tattoos) Skin: Warm, Dry, No Rash Head: Atraumatic, Normacephalic Eye(s): bilateral: Normal Inspection Oral Mucosa: Moist Cardiovascular: Rhythm Regular Respiratory: Normal Breath Sounds, No Rales, No Rhonchi, No Wheezing Gastrointestinal/Abdominal: Soft, No Tenderness, No Guarding, No Rebound Neurological/Psych: Oriented x3 <Jeremy Ross - Last Filed: 01/01/17 00:21> ED Course And Treatment - Laboratory Results Result Diagrams: 12/31/16 22:25 12/31/16 22:25 Lab Interpretation: Abnormal (ETOH 252 @ 2200) O2 Sat by Pulse Oximetry: 95 (RA) Pulse Ox Interpretation: Normal Progress Note: 4-pt restraints for safety, then removed when calm and cooperative Reevaluation Time: 00:15 Reassessment Condition: Improved (resting comfortably.) <Jeremy Ross - Last Filed: 01/01/17 00:21> - Laboratory Results Result Diagrams: 12/31/16 22:25 12/31/16 22:25 <Nancie Stewart - Last Filed: 01/01/17 02:38> Medical Decision Making <Jeremy Ross - Last Filed: 01/01/17 00:21> <Nancie Stewart - Last Filed: 01/01/17 02:38> Medical Decision Makin: alcohol intox, SI/HI, pending sobriety and psych eval. Patient restrained for safety (Jeremy Ross) Disposition <Jeremy Ross - Last Filed: 01/01/17 00:21> Discussed With Dr.: Peter Woodward Comment: accepted the pt on his service and took over the care at 2:30 AM Doctor Will See Patient In The: Hospital - Disposition Disposition Time: 02:36 - POA Present On Arrival: Poor Glycemic Control <Nancie Stewart - Last Filed: 01/01/17 02:38> - Disposition Referrals: Non [facility] Provider, [Primary Care Provider] - Disposition: HOSPITALIZED Condition: FAIR Forms: [employer] (Cymro) - Clinical Impression Clinical Impression: Alcohol intoxication, Depression - Scribe Statement The provider has reviewed the documentation as recorded by the Scribe <Jeremy Ross E - Last Filed: 01/01/17 00:21> <Nancie Stewart - Last Filed: 01/01/17 02:38> - Scribe Statement Deena Ayoub All medical record entries made by the Scribe were at my direction and personally dictated by me. I have reviewed the chart and agree that the record accurately reflects my personal performance of the history, physical exam, medical decision making, and the department course for this patient. I have also personally directed, reviewed, and agree with the discharge instructions and disposition. (Jeremy Ross) Physician Patient Turnover Patient Signed Over To: Nancie Stewart Handoff Comments: pending sobriety 2AM and Crisis Eval <Jeremy Ross - Last Filed: 01/01/17 00:21> Decision To Admit <Jeremy Ross - Last Filed: 01/01/17 00:21> - Pt Status Changed To: Hospital Disposition Of: Inpatient - Admit Certification Admit to Inpatient:: After my assessment, the patient will require hospitalization for at least two midnights. This is because of the severity of symptoms shown, intensity of services needed, and/or the medical risk in this patient being treated as an outpatient. - InPatient: Physician Admission Certification: I certify that this patient requires 2 or more midnights of care for the following reason:: After my assessment, the patient will require hospitalization for at least two midnights. This is because of the severity of symptoms shown, intensity of services needed, and/or the medical risk in this patient being treated as an outpatient. - . Bed Request Type: Psychiatry Admitting Physician: Peter Woodward <Nancie Stewart - Last Filed: 01/01/17 02:38> - . Patient Diagnosis: Alcohol intoxication, Depression
[2017-01-01 02:03] VITALS: O2SAT 97
[2017-01-01] MEDS ORDERED: Potassium Chloride 20 mEq ER Tab PO ONE (02:58)
--- NOTE | 2017-01-01 05:08 | PCM.BM ---
<DioTala - Last Filed: 01/01/17 05:04> Treatment Plan Problems - Problems identified on initial assessmt Suicidal Ideation Date Initiated: 01/01/17 Time Initiated: 02:55 Assessment reference: NA Status: Active Alcohol Abuse Date Initiated: 01/01/17 Time Initiated: 02:55 Assessment reference: NA Status: Active Treatment assets and liabiliti Patient Assests: ADL independent, physically healthy, negotiates basic needs Patient Liabilities: substance abuse (ETOH) - Milieu Protocol Maintain good personal hygiene: daily Encourage regular showers, daily Remind patient to perform daily oral care Conduct patient checks and document Observation sheet: Q15 minutes Maintain personal safety: every shift Educate patient to report safety concerns to staff, every shift Monitor environment for contraband/sharps Medication safety: Monitor for expected outcome, potential side effects: every shift, Assess barriers to learning: every shift, Assess readiness for medication education: every shift <Young Singletary - Last Filed: 01/02/17 12:28> - Diagnosis (1) Depression Status: Acute Interventions: 01/02/17 12:28 * Assess/adjust medications daily and /or as needed * See patient on an individual basis 7x/week to assess symptoms of depression * Monitor for side effects & effectiveness of medications * (2) Alcohol dependence Status: Acute Interventions: 01/02/17 12:28 * Assess 7x/week regarding severity of withdrawal * Educate regarding risks, benefits, side effects and alternatives of medications * Use Motivational Interviewing for abstinence * Use CBT for relapse prevention * Medication management for withdrawal symptoms * Encourage medication assisted treatment * <Nuha Lopez - Last Filed: 01/04/17 11:41> Family Contact Family involvement: Famliy/SO not involved - Goals for Treatment Patient goals for treatment: "I want to be referred to the [facility]." Discharge/Continuing Care - Education Needs Education Needs: Patient Medication, Patient Coping Skills, Patient Placement options, Patient Community resources - Discharge Discharge Criteria: Tolerates medication w/o severe side effects, Free of Suicidal thoughts, No longer exhibiting s/s of withdrawal Discharge to:: Home - Treatment Team Participation Discussed with Family/SO: No Was Patient/Family/SO present at Treatment Team Meeting: Yes
[2017-01-01 08:10] LABS: ALB/GLOB RATIO 1.2 (1.0-2.1); ALKALINE PHOSPHATASE 75 U/L (38-126); ALT/SGPT 48 U/L (21-72); AST/SGOT 58 U/L (17-59); BILIRUBIN,TOTAL 0.7 mg/dL (0.2-1.3); BLOOD UREA NITROGEN 6 mg/dL (9-20); CALCIUM 8.7 mg/dl (8.6-10.4); CARBON DIOXIDE 26 mmol/L (22-30); CHLORIDE 99 mmol/L (98-107); GFR AFRICAN-AMERICAN > 60; GLUCOSE,RANDOM 85 mg/dL (75-110); POTASSIUM 4.3 mmol/L (3.6-5.2); SODIUM 133 mmol/L (132-148); TOTAL PROTEIN 6.9 g/dL (6.3-8.3)
--- NOTE | 2017-01-01 13:14 | PCM.PSYCH ---
Initial Psychiatric Evaluation - Initial Psychiatric Evaluation Type of Admission: Voluntary Legal Status: Capacity Chief Complaint (in patient's own words): "Depressed" History of Present Illness and Precipitating Events: The pt is seen, chart reviewed and case discussed He is a 51 y/o WM, single, unemployed, has a place to stay He is here because of "severe depression" and alcohol use. He claims his GF committed suicide around November 27, after their break-up. He felt guilty and relapsed on alcohol - drinks 2 pints a day Denies heroin use x5 months now, he was detox here. Denies all other drugs and cigarette He has many depressive sx and SI but no plans now and contracts/will follow safety plan No psychotic or manic sxs Has "tons of" anxiety Past psych hx: Admission but no peng attempt Family psych hx: Depression. His fa committed suicide Medical hx: Denied Current Medications: Active Medications Generic Name Dose Route Start Last Admin Trade Name Freq PRN Reason Stop Dose Admin Chlordiazepoxide 0 mg 01/01/17 18:00 Librium PO 01/05/17 17:59 Q6 GRETA Taper Chlordiazepoxide 25 mg 01/01/17 12:33 Librium PO 01/05/17 12:34 Q4H PRN Alcohol Withdrawal Escitalopram Oxalate 10 mg 01/01/17 12:45 Lexapro PO DAILY GRETA Folic Acid 1 mg 01/01/17 12:45 Folic Acid PO DAILY GRETA Hydroxyzine HCl 50 mg 01/01/17 12:35 Atarax PO Q6H PRN Anxiety Multivitamins 1 tab 01/01/17 12:45 Hexavitamin PO DAILY GRETA Nicotine 1 patch 01/01/17 10:00 01/01/17 09:34 Nicoderm Cq TD 1 patch DAILY GRETA Administration Pneumococcal Polyvalent Vaccine 0.5 ml 01/03/17 10:00 Pneumovax 23 Vaccine IM 01/03/17 10:01 .ONCE ONE Quetiapine Fumarate 100 mg 01/01/17 22:00 Seroquel PO HS GRETA Thiamine HCl 100 mg 01/01/17 12:45 Vitamin B1 Tab PO DAILY GRETA Trazodone HCl 50 mg 01/01/17 02:58 01/01/17 03:19 Desyrel PO 50 mg HS GRETA Administration Past Psychiatric History - Past Psychiatric History Previous Treatment History: Inpatient Pertinent Medical Hx (Current Medical&Sleep Prob, Allergies): Allergies Allergy/AdvReac Type Severity Reaction Status Date / Time No Known Allergies Allergy Verified 12/31/16 21:58 Ambien 11/23/16 Xanax 11/23/16 Acetaminophen [Tylenol Arthritis] 650 mg PO Q6 #20 tablet.er 11/24/16 Review of Systems - Neurological Neurological: UNREMARKABLE - Psychiatric Psychiatric: Abnormal Sleep Pattern, Anhedonia, Anxiety, Behavioral Changes, Change in Appetite, Depression, Difficulty Concentrating, Irritability, Mood Swings. absent: Hallucinations, Homicidal Ideation, Suicidal Ideation Mental Status Examination - Personal Presentation Personal Presentation: Looks older than stated age (heavily tattooed) - Affect Affect: Constricted - Motor Activity Motor Activity: Calm - Reliability in Providing Information Reliability in Providing Information: Good - Speech Speech: Organized - Mood Mood: Depressed, Anxious - Formal Thought Process Formal Thought Process: No Impairment - Cognitive Functions Orientation: Person, Place, Situation, Time Sensorium: Alert Attention/Concentration: Easily distracted Estimate of Intelligence: Average Judgement: Intact, as evidence by: Insight regarding need for hospitalization Memory: Recent intact, as evidence by: Ability to recall events of the day, Remote intact, as evidenced by: Abilit to recall sig. life events - Risk Risk: Withdrawal, Diminished functioning - Strength & Assets Inventory Strength & Assets Inventory: Cooperative - Limitations Limitations: Living alone, Other DSM 5 DX - DSM 5 DSM 5 Diagnosis: Major depression, severe, recurr. without psychosis opioid use disorder severe - in early remission alcohol withdrawal alcohol use disorder - severe Anxiety d/o - unspecified - Recommended/Plan of Treatment Treatment Recommendations and Plan of Treatment: Lexapro for depression Seroquel for insomnia, irritability and depression Librium detox As needed medications Gabapentin for augmentation Attend groups and activities Supportive therapy and psychoeducation MT for abstinence CBT for relapse prevention Encourage MAT Refer to rehab or IOP Attend self-help groups as well 32 min Projected ELOS: 5-6 days Prognosis: good w treatment Discharge Plan and Discharge Criteria: refer to rehab or IOP No wdw and no SI/severe dep sxs are the criteria - Smoking Cessation Smoking Cessation Initiated: No Reason for not providing: not a smoker
[2017-01-01] MEDS: Multiple Vitamins Tab PO SCH (13:21)
[2017-01-02] MEDS: Multiple Vitamins Tab PO SCH (09:27)
--- NOTE | 2017-01-02 20:53 | PCM.PYCHPN ---
Psychiatric Progress Note - Psychiatric Progress Note Patient seen today, length of contact: 16 minutes Patient Chief Complaint: I'm feeling better Problems Identified/Issues Discussed: Patient was seen and evaluated, chart reviewed and nurse input received. He has had no issue last night. Case was discussed with the nurse. Pt reports improvement in is mood and improvement in the feelings of hopelessness and helplessness. He has stated coming out of his room. He reports that he wants to go the inpatient rehab from . Patient reports improvement in his withdrawal symptoms. He is taking medication and denies any side effects. He needs more time for stabilization DSM 5 Symptoms Update: Major depression, severe, recurr. without psychosis opioid use disorder severe - in early remission alcohol withdrawal alcohol use disorder - severe Anxiety d/o - unspecified Medication Change: No Medical Record Reviewed: Yes Mental Status Examination - Cognitive Function Orientation: Person, Place, Situation, Time Memory: Intact Attention: WNL Concentration: WNL Association: [facility] Fund of Knowledge: WN - Mood Mood: Depressed, Anxious - Affect Affect: Constricted - Speech Speech: Appropriate - Formal Thought Process Formal Thought Process: No Impairment Psychotic Thoughts and Behaviors: denied - Suicidal Ideation Suicidal Ideation: No - Homicidal Ideation Homicidal Ideation: No Goal/Treatment Plan - Goal/Treatment Plan Need for Continued Stay: Severe depression anxiety, Discharge may exacerbated symptoms Progress Toward Problem(s) and Goals/Treatment Plan: Lexapro for depression Seroquel for insomnia, irritability and depression Librium detox As needed medications Gabapentin for augmentation Attend groups and activities Supportive therapy and psychoeducation [place] for abstinence CBT for relapse prevention Encourage MAT Refer to rehab or IOP Attend self-help groups as well Estimated Date of D/C: 01/06/17 - Smoking Cessation Smoking Cessation Initiated: Yes
[2017-01-03] MEDS: Multiple Vitamins Tab PO SCH (09:50)
[2017-01-03] MEDS ORDERED: Pneumococcal 23-Valent Vaccine IM ONE (10:00)
--- NOTE | 2017-01-03 19:22 | PCM.PYCHPN ---
Psychiatric Progress Note - Psychiatric Progress Note Patient seen today, length of contact: 17 minutes Patient Chief Complaint: I'm doing better Problems Identified/Issues Discussed: Patient was seen and evaluated, chart reviewed and nurse input received. He has had no issue last night. Case was discussed with the nurse. Pt reports improvement in is mood and improvement in the feelings of hopelessness and helplessness. He has stated coming out of his room. He reports that he wants to go the inpatient rehab from . Patient reports improvement in his withdrawal symptoms. He is taking medication and denies any side effects. He needs more time for stabilization DSM 5 Symptoms Update: MDD, RECURRENT W/O PSYCHOTIC FEATURES ETOH USE D/O, SEVERE, DEPENDENCE, WITHDRAWAL, OPIOID USE D/O Medication Change: No Medical Record Reviewed: Yes Mental Status Examination - Cognitive Function Orientation: Person, Place, Situation, Time Memory: Intact Attention: WNL Concentration: WNL Association: WNL Fund of Knowledge: WNL - Mood Mood: Anxious, Neutral - Affect Affect: Constricted - Speech Speech: Appropriate - Formal Thought Process Formal Thought Process: No Impairment Psychotic Thoughts and Behaviors: denied - Suicidal Ideation Suicidal Ideation: No - Homicidal Ideation Homicidal Ideation: No Goal/Treatment Plan - Goal/Treatment Plan Need for Continued Stay: Severe depression anxiety, Discharge may exacerbated symptoms Progress Toward Problem(s) and Goals/Treatment Plan: Lexapro for depression Seroquel for insomnia, irritability and depression Librium detox As needed medications Gabapentin for augmentation Attend groups and activities Supportive therapy and psychoeducation [place] for abstinence CBT for relapse prevention Encourage MAT Refer to rehab or IOP Attend self-help groups as well Estimated Date of D/C: 01/06/17
[2017-01-04] MEDS: Multiple Vitamins Tab PO SCH (09:41)
[2017-01-04] MEDS ORDERED: Naltrexone 25 MG TAB PO SCH (11:45)
[2017-01-04] MEDS ORDERED: Vitamins A & D Oint UD Foilpak TOP PRN (14:23)
--- NOTE | 2017-01-04 15:19 | PCM.PYCHPN ---
Psychiatric Progress Note - Psychiatric Progress Note Patient seen today, length of contact: 17 minutes Patient Chief Complaint: "Whatever you gave me is working" Medical Problems: The pt is seen, chart reviewed, case discussed with staff. Pt is a 51 y/o male, who is single and unemployed, but has a home. Pt was admitted 01/01/17 for depression. The pt is currently not exhibiting any depression or withdrawal symptoms. The pt is compliant with medications and reports no side-effects. Symptoms are improving but needs more time to stabilize. After care discussed, support and psychoeducation given. He wants to go to an IOP, and he wants to leave tomorrow b/c of t about his son Medication Change: Yes (add naltrexone) Medical Record Reviewed: Yes Mental Status Examination - Cognitive Function Orientation: Person, Place, Situation, Time Memory: Intact Attention: WNL Concentration: WNL Association: WNL Fund of Knowledge: WNL - Mood Mood: Anxious, Neutral - Affect Affect: Constricted - Speech Speech: Appropriate - Formal Thought Process Formal Thought Process: No Impairment - Suicidal Ideation Suicidal Ideation: No - Homicidal Ideation Homicidal Ideation: No Goal/Treatment Plan - Goal/Treatment Plan Need for Continued Stay: Severe depression anxiety, Discharge may exacerbated symptoms, Severe functional impairment Progress Toward Problem(s) and Goals/Treatment Plan: Lexapro for depression Seroquel for insomnia, irritability and depression Librium detox ended Naltrexone for cravings started - risks discussed - he understood/agreed As needed medications Gabapentin for augmentation Attend groups and activities Supportive therapy and psychoeducation [place] for abstinence CBT for relapse prevention Refer to rehab or IOP Attend self-help groups as well Estimated Date of D/C: 01/05/17
[2017-01-05 06:41] VITALS: BP 123/81; PULSE 74; RESP 16; TEMP 97.8
[2017-01-05] MEDS: Multiple Vitamins Tab PO SCH (09:56)
--- NOTE | 2017-01-05 10:56 | PCM.PYCHDC ---
Mental Status Examination - Mental Status Examination Orientation: Person, Place, Situation, Time Memory: Intact Mood: Anxious Affect: Constricted Speech: Loud Attention: WNL Concentration: WNL Association: WNL Fund of Knowledge: WNL Formal Thought Process: No Impairment Suicidal Ideation: No Current Homicidal Ideation?: No Discharge Summary - Discharge Note Reason for Hospitalization: Feeling depressed and suicidal. Consultations:: List each consultation separately and include: 1. Reason for request. 2. Findings. 3. Follow-up Summary of Hospital Course include:: 1. Description of specific treatment plan utilized for patients during their course of treatmen. 2. Summarize the time- course for resolution of acute symptoms and/or regressed behaviors. 3. Describe issues identified and worked on during hospitalization. 4. Describe medication utilized. 5. Describe medical problems identified and treated. 6. Reassessment of suicide risk Summary of Hospital Course: The pt is seen, chart reviewed and case discussed On admission: He is a 51 y/o WM, single, unemployed, has a place to stay He is here because of "severe depression" and alcohol use. He claims his GF committed suicide around November 27, after their break-up. He felt guilty and relapsed on alcohol - drinks 2 pints a day Denies heroin use x5 months now, he was detox here. Denies all other drugs and cigarette He has many depressive sx and SI but no plans now and contracts/will follow safety plan No psychotic or manic sxs Has "tons of" anxiety Past psych hx: Admission but no peng attempt Family psych hx: Depression. His fa committed suicide Medical hx: Denied Hospital course: The pt was admitted and started on treatment with psychotherapy, support, psychoeducation and medications. MS and CBT used. The pt attended groups and activities, as well as milieu therapy. All the risks and benefits of medications are discussed and the patient understood and agreed. The pt improved with the treatments provided. After care discussed with the patient.Pt will attend CRC - Final Diagnosis (DSM 5) Condition upon Discharge: IMPROVED DSM 5: Major depression, severe, recurr. without psychosis opioid use disorder severe - in early remission alcohol withdrawal alcohol use disorder - severe Anxiety d/o - unspecified Disposition: HOME/ ROUTINE Follow-up Treatment Plan: Continue below medications after discharge. Follow after care plan as discussed. Use relapse prevention skills Return to ER or call 911 if suicidal, homicidal or symptoms relapse. Stay away from stress, alcohol and drugs. See primary doctor regularly and get labs. Prescriptions/Medication Reconciliation: Escitalopram [Lexapro] 10 mg PO DAILY #30 tab Gabapentin [Neurontin] 300 mg PO TID #90 cap Naltrexone [Revia] 50 mg PO DAILY #30 tab QUEtiapine [Seroquel] 100 mg PO HS #30 tab traZODone [Desyrel] 50 mg PO HS #30 tab - Smoking Cessation Smoking Cessation Medication prescribed: No - Antipsychotic Medications Pt discharged on 2 or more routine antipsychotic medications: No
== END 2017-01-05 11:10 | disposition home or self-care (01) | DRG 885 ==
LOC: SUPCPDRO 21:42 → C.ER 21:42 → C.5E 01-01 02:34
PROVIDERS: ADMIT Psychiatry & Neurology Psychiatry; ATTEND Psychiatry & Neurology Psychiatry
DX: F33.2 Major depressive disorder, recurrent severe without psychotic features (principal); F10.239 Alcohol dependence with withdrawal, unspecified; F10.229 Alcohol dependence with intoxication, unspecified; Y90.8 Blood alcohol level of 240 mg/100 ml or more; F41.9 Anxiety disorder, unspecified; F11.21 Opioid dependence, in remission; J44.9 Chronic obstructive pulmonary disease, unspecified; Z87.891 Personal history of nicotine dependence

== ENCOUNTER 2017-04-10 22:20 | Emergency (ER) | payer MEDICARE ==
[2017-04-10 22:21] VITALS: BMI 28.7
[2017-04-10 23:10] VITALS: O2SAT 96
--- NOTE | 2017-04-10 23:12 | C.PDOC ---
History Of Present Illness 51 year old male presents to the ED brought in by EMS for evaluation of alcohol intoxication. Per EMS, patient was found outside with alcohol on his breath. Patient is sleeping but arousable to verbal stimuli. He has a laceration above his right eye. Otherwise, patient has no complaints at this time. Time Seen by Provider: 04/10/17 22:32 Chief Complaint (Nursing): Substance Abuse History Per: Patient, EMS History/Exam Limitations: intoxication Onset/Duration Of Symptoms: Unknown Current Symptoms Are (Timing): Gone Suicide/Self Injury Attempted (Context): None Modifying Factor(s): Alcohol Recent travel outside of the [place]: No Past Medical History Reviewed: Historical Data, Nursing Documentation, Vital Signs Vital Signs: Last Vital Signs Temp 97.9 F 04/10/17 23:03 Pulse 94 H 04/10/17 23:03 Resp 20 04/10/17 23:03 BP 132/86 04/10/17 23:03 Pulse Ox 96 04/10/17 23:03 - Medical History PMH: Anxiety, Back Problems (chronic), Bipolar Disorder, Bronchitis, COPD, Depression, Fractures (ribs fractured in 2003) Denies: Diabetes, Hepatitis, HIV, HTN, Personality Disorder, Chronic Kidney Disease, Schizophrenia, Seizures, Sexually Transmitted Disease Surgical History: Hernia Repair (umbilical and abdominal) - [facility] Procedures ALCOHOL DETOXIFICATION (02/09/14) DETOXIFICATION SERVICES FOR SUBSTANCE ABUSE TREATMENT (08/07/16) EXCISE CORD/EPID LES NEC (11/10/13) GROUP PSYCHOTHERAPY (09/13/15) INDIV PSYCHOTHERAPY FOR SUBSTANCE ABUSE TREATMENT, SUPPORT (08/07/16) INDIV PSYCHOTHERAPY FOR SUBSTANCE ABUSE, COGNITIV BEHAVIORAL (08/07/16) INDIV PSYCHOTHERAPY FOR SUBSTANCE ABUSE, PSYCHOEDUCATION (08/07/16) MEDICATION MANAGEMENT (09/13/15) NON-INVASIVE MECHANICAL VENTILATION (06/27/12) OTH & OPEN REP OTH HERNIA OF ANTER ABD WALL W GRF OR PROSTH (06/27/12) OTH & OPEN REPAIR INDIRECT INGUINAL HERNIA W GRFT OR PROSTH (11/10/13) Family History: States: Unknown Family Hx - Social History Hx Tobacco Use: Yes Hx Alcohol Use: Yes Hx Substance Use: Yes - Immunization History Hx Tetanus Toxoid Vaccination: No Hx Influenza Vaccination: No Hx Pneumococcal Vaccination: No Review Of Systems Except As Marked, All Systems Reviewed And Found Negative. Skin: Positive for: Other (Abrasion) Psych: Positive for: Other (Alcohol intoxication) Physical Exam - Physical Exam Appears: Non-toxic, No Acute Distress Skin: Normal Color, Warm, Dry Head: Normacephalic, Other (Swelling and tenderness to right forehead with 1 cm laceration along eyebrow) Eye(s): bilateral: Normal Inspection, PERRL, EOMI Oral Mucosa: Moist, Other (Alcohol on breath) Throat: Normal Neck: Normal ROM, Supple Chest: Symmetrical Cardiovascular: Rhythm Regular (Rate Regular ) Respiratory: Normal Breath Sounds, No Rales, No Rhonchi Gastrointestinal/Abdominal: Soft, No Tenderness Back: Normal Inspection Extremity: Normal ROM, No Deformity Extremity: Bilateral: Atraumatic Neurological/Psych: Other (Sleeping but arousable to verbal stimuli, Moving all extremities) Laceration - Laceration Repair right eyebrow laceration Wound Length (In cm): 1 cm Description Of Wound: Irregular (Dog ear ) Wound Cleansed With: Sterile Saline Anesthesia: Lidocaine 1% (1 mL) Wound Examination: Irrigated With Saline (200 cc's) Wound Closure: Suture Suture Technique And Material Used: Nylon (four 5-0) Medical Decision Making Medical Decision Making: Impression: head injury, alcohol intoxication. Laceration to right eyebrow repaired. Patient tolerated procedure well. No complications. Bacitracin applied and wound dressed. Disposition - Disposition Disposition Time: 00:38 Condition: FAIR Forms: [facility] (Azeri) - Clinical Impression Clinical Impression: Alcohol intoxication, Head injury, Laceration - Scribe Statement The provider has reviewed the documentation as recorded by the Yovanyiblandy Huggins Provider Attestation: All medical record entries made by the Scribe were at my direction and personally dictated by me. I have reviewed the chart and agree that the record accurately reflects my personal performance of the history, physical exam, medical decision making, and the department course for this patient. I have also personally directed, reviewed, and agree with the discharge instructions and disposition. Physician Patient Turnover Patient Signed Over To: Nancie Stewart Handoff Comments: pending sobriety, reevaluation and disposition
--- NOTE | 2017-04-11 00:22 | CT ---
EXAM: CT Head Without Intravenous Contrast EXAM DATE/TIME: 04/10/2017 11:04 PM CLINICAL HISTORY: 51 years old, male; Injury or trauma; Fall; Initial encounter; Abrasion; Forehead; Injury date: 04/10/17; Patient HX: Substance abuse; Additional info: Dizziness TECHNIQUE: Axial computed tomography images of the head/brain without intravenous contrast. All CT scans at this facility use one or more dose reduction techniques, viz.: automated exposure control; ma/kV adjustment per patient size (including targeted exams where dose is matched to indication; i.e. head); or iterative reconstruction technique. COMPARISON: CT - HEAD W/O CONTRAST 2016-11-23 23:52 FINDINGS: Brain: Ventricles are normal in size and configuration. There is no midline shift. There are no intra-axial or extra-axial mass lesions or areas of hemorrhage. There are no abnormal fluid collections. Crain-white differentiation is maintained. Ventricles: See above. Bones: Cranial vault is intact. Soft tissues: There is right facial and periorbital soft tissue swelling and edema. There is a right frontal scalp hematoma. Sinuses: There is mucoperiosteal thickening in maxillary and ethmoid sinuses. Ears and mastoids: Middle ears and mastoids are unremarkable. There is debris in the left external auditory canal. Orbits: Globes are intact.There is streak artifact from a left eyebrow ring. IMPRESSION: Right facial and periorbital soft tissue swelling/bruising, intact lobe; right frontal scalp hematoma, no underlying fracture; no acute intracranial abnormality; sinus disease
[2017-04-11 05:57] VITALS: BP 129/76; PULSE 86; RESP 16; TEMP 97.8
== END 2017-04-11 05:57 | disposition home or self-care (01) ==
LOC: C.ER 22:20
DX: F10.129 Alcohol abuse with intoxication, unspecified (principal); S01.111A Laceration without foreign body of right eyelid and periocular area, initial encounter; S00.03XA Contusion of scalp, initial encounter; X58.XXXA Exposure to other specified factors, initial encounter; Z72.0 Tobacco use

== ENCOUNTER 2017-04-19 12:37 | Emergency (ER) | payer MEDICARE ==
[2017-04-19 12:38] VITALS: BMI 28.7
[2017-04-19 12:55] VITALS: BP 115/70; PULSE 115; RESP 20; TEMP 100.5; O2SAT 93
--- NOTE | 2017-04-19 13:47 | C.PDOC ---
History Of Present Illness 51 y/o male presents to the ER requesting detox from heroin and ETOH. Patient states that he came from [facility]. Patient denies having any active physical complaints at this time. Time Seen by Provider: 04/19/17 13:13 Chief Complaint (Nursing): Substance Abuse History Per: Patient History/Exam Limitations: no limitations Past Medical History Reviewed: Historical Data, Nursing Documentation, Vital Signs Vital Signs: Last Vital Signs Temp 100.5 F H 04/19/17 12:50 Pulse 115 H 04/19/17 12:50 Resp 20 04/19/17 12:50 BP 115/70 04/19/17 12:50 Pulse Ox 93 L 04/19/17 13:47 - Medical History PMH: Anxiety, Back Problems (chronic), Bipolar Disorder, Bronchitis, COPD, Depression, Fractures (ribs fractured in 2003) Denies: Diabetes, Hepatitis, HIV, HTN, Personality Disorder, Chronic Kidney Disease, Schizophrenia, Seizures, Sexually Transmitted Disease Surgical History: Hernia Repair (umbilical and abdominal) - [facility] Procedures ALCOHOL DETOXIFICATION (02/09/14) DETOXIFICATION SERVICES FOR SUBSTANCE ABUSE TREATMENT (08/07/16) EXCISE CORD/EPID LES NEC (11/10/13) GROUP PSYCHOTHERAPY (09/13/15) INDIV PSYCHOTHERAPY FOR SUBSTANCE ABUSE TREATMENT, SUPPORT (08/07/16) INDIV PSYCHOTHERAPY FOR SUBSTANCE ABUSE, COGNITIV BEHAVIORAL (08/07/16) INDIV PSYCHOTHERAPY FOR SUBSTANCE ABUSE, PSYCHOEDUCATION (08/07/16) MEDICATION MANAGEMENT (09/13/15) NON-INVASIVE MECHANICAL VENTILATION (06/27/12) OTH & OPEN REP OTH HERNIA OF ANTER ABD WALL W GRF OR PROSTH (06/27/12) OTH & OPEN REPAIR INDIRECT INGUINAL HERNIA W GRFT OR PROSTH (11/10/13) Family History: States: No Known Family Hx - Social History Hx Tobacco Use: Yes Hx Alcohol Use: Yes Hx Substance Use: No - Immunization History Hx Tetanus Toxoid Vaccination: No Hx Influenza Vaccination: No Hx Pneumococcal Vaccination: No Review Of Systems Except As Marked, All Systems Reviewed And Found Negative. Physical Exam - Physical Exam Appears: No Acute Distress Skin: Normal Color, Warm Head: Atraumatic, Normacephalic Eye(s): bilateral: Other (pinpoint pupils) Nose: Normal Oral Mucosa: Other (ETOH on breath) Chest: Symmetrical Cardiovascular: Rhythm Regular Respiratory: Normal Breath Sounds, No Accessory Muscle Use, No Rales, No Rhonchi , No Wheezing Neurological/Psych: Oriented x3, Normal Speech Gait: Steady ED Course And Treatment O2 Sat by Pulse Oximetry: 93 Pulse Ox Interpretation: Abnormal Progress Note: Case was discussed with Crisis. There are no detox beds available. Medical Decision Making Medical Decision Making: seeking detox from [facility] not available this MD and Crisis d/w pt who then eloped from ED with information on f/u. Disposition Doctor Will See Patient In The: Office Counseled Patient/Family Regarding: Studies Performed, Diagnosis - Disposition Referrals: Alcoholics Anonymous [Outside] [facility] [Outside] [facility] [Outside] [facility] [Outside] Disposition: ELOPEMENT - ER ONLY Disposition Time: 13:46 Condition: GOOD Instructions: Alcohol Abuse and Alcoholism (DC), Opioid Use Disorder Forms: [facility] (Mohawk) - Clinical Impression Clinical Impression: Drug abuse, Opiate dependence, Alcohol abuse - Scribe Statement The provider has reviewed the documentation as recorded by the Vipul Urbina Provider Attestation: All medical record entries made by the Yovanyiblandy were at my direction and personally dictated by me. I have reviewed the chart and agree that the record accurately reflects my personal performance of the history, physical exam, medical decision making, and the department course for this patient. I have also personally directed, reviewed, and agree with the discharge instructions and disposition.
== END 2017-04-19 13:59 | disposition left against medical advice (07) ==
LOC: C.ER 12:37
DX: F11.20 Opioid dependence, uncomplicated (principal); F19.20 Other psychoactive substance dependence, uncomplicated; F10.10 Alcohol abuse, uncomplicated

== ENCOUNTER 2017-05-10 16:25 | Emergency (ER) | payer MEDICARE ==
[2017-05-10 16:25] VITALS: BMI 28.7
[2017-05-10 16:35] VITALS: BP 97/66; PULSE 73; RESP 18; TEMP 97.9; O2SAT 96
--- NOTE | 2017-05-10 17:17 | C.PDOC ---
History Of Present Illness 52 year old male is brought to the ED by EMS for alcohol intoxication. Patient is clearly intoxicated, admits to drinking alcohol today. Patient denies SI/HI, hallucinations, CP, SOB, abdominal pain, weakness, numbness, injury, fall, trauma. (Ivonne Garcia) History Per: EMS History/Exam Limitations: intoxication Onset/Duration Of Symptoms: Hrs Current Symptoms Are (Timing): Still Present Suicide/Self Injury Attempted (Context): None Modifying Factor(s): Alcohol Associated Symptoms: denies: Depression, Suicidal Thoughts, Suicidal Plan Involuntary Hold By: None Recent travel outside of the [place]: No Additional History Per: EMS Time Seen by Provider: 05/10/17 16:39 Chief Complaint (Nursing): Substance Abuse Past Medical History Reviewed: Historical Data, Nursing Documentation, Vital Signs - Medical History PMH: Anxiety, Back Problems (chronic), Bipolar Disorder, Bronchitis, COPD, Depression, Fractures (ribs fractured in 2003) Denies: Diabetes, Hepatitis, HIV, HTN, Personality Disorder, Chronic Kidney Disease, Schizophrenia, Seizures, Sexually Transmitted Disease Surgical History: Hernia Repair (umbilical and abdominal) Family History: States: Unknown Family Hx - Social History Hx Tobacco Use: Yes Hx Alcohol Use: Yes Hx Substance Use: No - Immunization History Hx Tetanus Toxoid Vaccination: No Hx Influenza Vaccination: No Hx Pneumococcal Vaccination: No Vital Signs: Last Vital Signs Temp 97.9 F 05/10/17 16:30 Pulse 73 05/10/17 16:30 Resp 18 05/10/17 16:30 BP 97/66 L 05/10/17 16:30 Pulse Ox 96 05/10/17 18:48 - [facility] Procedures ALCOHOL DETOXIFICATION (02/09/14) DETOXIFICATION SERVICES FOR SUBSTANCE ABUSE TREATMENT (08/07/16) EXCISE CORD/EPID LES NEC (11/10/13) GROUP PSYCHOTHERAPY (09/13/15) INDIV PSYCHOTHERAPY FOR SUBSTANCE ABUSE TREATMENT, SUPPORT (08/07/16) INDIV PSYCHOTHERAPY FOR SUBSTANCE ABUSE, COGNITIV BEHAVIORAL (08/07/16) INDIV PSYCHOTHERAPY FOR SUBSTANCE ABUSE, PSYCHOEDUCATION (08/07/16) MEDICATION MANAGEMENT (09/13/15) NON-INVASIVE MECHANICAL VENTILATION (06/27/12) OTH & OPEN REP OTH HERNIA OF ANTER ABD WALL W GRF OR PROSTH (06/27/12) OTH & OPEN REPAIR INDIRECT INGUINAL HERNIA W GRFT OR PROSTH (11/10/13) Review Of Systems Constitutional: Negative for: Fever, Chills Cardiovascular: Negative for: Chest Pain, Palpitations Respiratory: Negative for: Cough, Shortness of Breath Gastrointestinal: Negative for: Vomiting, Abdominal Pain Neurological: Negative for: Weakness, Numbness Psych: Negative for: Depression, Suicidal ideation Physical Exam - Physical Exam Appears: Non-toxic, No Acute Distress Skin: Normal Color, Warm, Dry Head: Atraumatic, Normacephalic Eye(s): bilateral: Normal Inspection Nose: No Discharge Oral Mucosa: Moist Neck: Normal ROM, Supple Chest: Symmetrical Cardiovascular: Rhythm Regular, No Murmur Respiratory: Normal Breath Sounds, No Rales, No Rhonchi, No Wheezing Gastrointestinal/Abdominal: Soft, No Tenderness, No Guarding, No Rebound Extremity: Normal ROM, No Tenderness, No Swelling Neurological/Psych: Oriented x3 ED Course And Treatment O2 Sat by Pulse Oximetry: 96 (ON RA) Pulse Ox Interpretation: Normal Medical Decision Making Medical Decision Making: When approached to assess if sober, patient became boisterious and loud, using foul language, I could determine patient was able to ambulate without difficulty and deem him clinically sober. 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 - Scribe Statement The provider has reviewed the documentation as recorded by the Scribe - Scribe Statement Ilya Coelho All medical record entries made by the Scribe were at my direction and personally dictated by me. I have reviewed the chart and agree that the record accurately reflects my personal performance of the history, physical exam, medical decision making, and the department course for this patient. I have also personally directed, reviewed, and agree with the discharge instructions and disposition. (Ivonne Garcia) Physician Patient Turnover Patient Signed Over To: Negin Cornejo Handoff Comments: pending sobriety
== END 2017-05-10 20:27 | disposition home or self-care (01) ==
LOC: C.ER 16:25
DX: F10.129 Alcohol abuse with intoxication, unspecified (principal); Y90.9 Presence of alcohol in blood, level not specified

== ENCOUNTER 2017-05-11 11:03 | Inpatient (IN) | payer MEDICARE ==
[2017-05-11 11:03] VITALS: BMI 28.7
--- NOTE | 2017-05-11 11:53 | RAD ---
HISTORY: COMPARISON: 11/12/2013. TECHNIQUE: Chest PA and lateral FINDINGS: LINES AND TUBES: None. LUNG AND PLEURA: The lungs are well inflated and clear. HEART AND MEDIASTINUM: The heart is not enlarged. The hilar and mediastinal contours are within normal limits. SKELETAL STRUCTURES: The bony structures are within normal limits for the patient's age. VISUALIZED UPPER ABDOMEN: Normal. OTHER FINDINGS: None. IMPRESSION: No active pulmonary disease.
[2017-05-11 11:57] LABS: BASO # 0.1 K/uL (0.0-0.2); BASO % 1.6 % (0.0-2.0); EOS # 0.1 K/uL (0.0-0.7); EOS % 1.8 % (0.0-4.0); HEMOGLOBIN 13.8 g/dL (12.0-18.0); LYMPH # 3.3 K/uL (1.0-4.3); LYMPH % 46.9 % (20.0-40.0); MEAN CELL VOLUME 95.3 fL (80.0-94.0); MEAN CORPUSCULAR HEMOGLOBIN 33.5 pg (27.0-31.0); MEAN CORPUSCULAR HGB CONC 35.2 g/dL (33.0-37.0); MEAN PLATELET VOLUME 7.6 fL (7.2-11.7); MONO # 0.8 K/uL (0.0-0.8); MONO % 11.3 % (0.0-10.0); NEUT # 2.7 K/uL (1.8-7.0); NEUT % 38.4 % (50.0-75.0); NRBC % 0.1 % (0.0-2.0); RBC 4.13 Mil/uL (4.40-5.90); RED CELL DISTRIBUTION WIDTH 15.7 % (11.5-14.5)
--- NOTE | 2017-05-11 12:10 | C.PDOC ---
History Of Present Illness 52 year old male presents to the ED requesting alcohol detox. Patient states his last drink was this morning. He denies suicidal/homicidal ideation, any other substance abuse and has no physical complaints at this time. Time Seen by Provider: 05/11/17 11:06 Chief Complaint (Nursing): Substance Abuse History Per: Patient History/Exam Limitations: no limitations Onset/Duration Of Symptoms: Hrs Current Symptoms Are (Timing): Still Present Suicide/Self Injury Attempted (Context): None Modifying Factor(s): Alcohol Associated Symptoms: denies: Suicidal Thoughts, Suicidal Plan Involuntary Hold By: None Recent travel outside of the [place]: No Additional History Per: Patient Past Medical History Reviewed: Historical Data, Nursing Documentation, Vital Signs Vital Signs: Last Vital Signs Temp 98.8 F 05/11/17 16:59 Pulse 79 05/11/17 16:59 Resp 20 05/11/17 16:59 BP 132/84 05/11/17 16:59 Pulse Ox 97 05/11/17 16:59 - Medical History PMH: Anxiety, Back Problems (chronic), Bipolar Disorder, Bronchitis, COPD, Depression, Fractures (ribs fractured in 2003) Denies: Diabetes, Hepatitis, HIV, HTN, Personality Disorder, Chronic Kidney Disease, Schizophrenia, Seizures, Sexually Transmitted Disease Surgical History: Hernia Repair (umbilical and abdominal) - [facility] Procedures ALCOHOL DETOXIFICATION (02/09/14) DETOXIFICATION SERVICES FOR SUBSTANCE ABUSE TREATMENT (08/07/16) EXCISE CORD/EPID LES NEC (11/10/13) GROUP PSYCHOTHERAPY (09/13/15) INDIV PSYCHOTHERAPY FOR SUBSTANCE ABUSE TREATMENT, SUPPORT (08/07/16) INDIV PSYCHOTHERAPY FOR SUBSTANCE ABUSE, COGNITIV BEHAVIORAL (08/07/16) INDIV PSYCHOTHERAPY FOR SUBSTANCE ABUSE, PSYCHOEDUCATION (08/07/16) MEDICATION MANAGEMENT (09/13/15) NON-INVASIVE MECHANICAL VENTILATION (06/27/12) OTH & OPEN REP OTH HERNIA OF ANTER ABD WALL W GRF OR PROSTH (06/27/12) OTH & OPEN REPAIR INDIRECT INGUINAL HERNIA W GRFT OR PROSTH (11/10/13) Family History: States: Unknown Family Hx - Social History Hx Tobacco Use: Yes Hx Alcohol Use: Yes Hx Substance Use: No - Immunization History Hx Tetanus Toxoid Vaccination: No Hx Influenza Vaccination: No Hx Pneumococcal Vaccination: No Review Of Systems Psych: Positive for: Other (alcohol detox ). Negative for: Suicidal ideation Physical Exam - Physical Exam Appears: Non-toxic, No Acute Distress Skin: Normal Color, Warm, Dry Head: Atraumatic, Normacephalic Eye(s): bilateral: Normal Inspection Oral Mucosa: Moist Neck: Supple Chest: Symmetrical, No Deformity, No Tenderness Cardiovascular: Rhythm Regular, No Murmur Respiratory: Normal Breath Sounds, No Rales, No Rhonchi, No Wheezing Extremity: Normal ROM, Capillary Refill (less than 2 seconds ) Neurological/Psych: Oriented x3, Normal Speech, Normal Cognition ED Course And Treatment - Laboratory Results Result Diagrams: 05/11/17 11:50 05/11/17 11:50 Lab Interpretation: Normal ECG: Interpreted By Me, Viewed By Me ECG Rhythm: Sinus Rhythm ECG Interpretation: Normal Interpretation Of ECG: SR@77/min, NAD, no acute T wave or ST-T changes. O2 Sat by Pulse Oximetry: 97 (on RA ) Pulse Ox Interpretation: Normal - Radiology CXR: Interpreted by Me, Viewed By Me CXR Interpretation: Yes: No Acute Disease - Other Rad CXR X-Ray: Interpreted by Me, Viewed By Me, Read By Radiologist Interpretation: HISTORY: COMPARISON: 11/12/2013. TECHNIQUE: Chest PA and lateral. FINDINGS: LINES AND TUBES: None. LUNG AND PLEURA: The lungs are well inflated and clear. HEART AND MEDIASTINUM: The heart is not enlarged. The hilar and mediastinal contours are within normal limits. SKELETAL STRUCTURES: The bony structures are within normal limits for the patient's age. VISUALIZED UPPER ABDOMEN: Normal. OTHER FINDINGS: None. IMPRESSION: No active pulmonary disease. Progress Note: Bloodwork, urinalysis, CXR, and EKG ordered and reviewed. Pt remained stable during the ED evaluation, AAO#3, appropriate. Neuorlogicaly intact. Blood work, CXR, EKG review and appears normal. Pt is medically cleared for PES evaluation. After pt was seen by PES, admission arranged to detox with Dx: Alcohol dependance. Disposition - Disposition Disposition: HOSPITALIZED Disposition Time: 13:30 Condition: STABLE - Clinical Impression Clinical Impression: Alcohol dependence - PA / SYSTEM ADMIN / Resident Statement MD/DO has reviewed & agrees with the documentation as recorded. - Scribe Statement The provider has reviewed the documentation as recorded by the Scribe (Brittany Nixon) All medical record entries made by the Scribe were at my direction and personally dictated by me. I have reviewed the chart and agree that the record accurately reflects my personal performance of the history, physical exam, medical decision making, and the department course for this patient. I have also personally directed, reviewed, and agree with the discharge instructions and disposition.
[2017-05-11 12:12] LABS: ALB/GLOB RATIO 1.2 (1.0-2.1); ALBUMIN 3.9 g/dL (3.5-5.0); ALT/SGPT 21 U/L (21-72); AST/SGOT 40 U/L (17-59); BLOOD UREA NITROGEN 8 mg/dL (9-20); CALCIUM 8.9 mg/dl (8.6-10.4); GFR AFRICAN-AMERICAN > 60; GFR NON-AFRICAN AMERICAN > 60
[2017-05-11 12:33] LABS: SQUAMOUS EPITHIAL < 1 /hpf (0-5); URINE BILIRUBIN NEGATIVE (NEGATIVE); URINE BLOOD NEGATIVE (NEGATIVE); URINE CLARITY Clear (Clear); URINE COLOR Straw (YELLOW); URINE GLUCOSE (UA) NORMAL (Normal); URINE LEUKOCYTE ESTERASE NEG Leu/uL (Negative); URINE PROTEIN NEGATIVE (NEGATIVE); URINE UROBILINOGEN NORMAL mg/dL (0.2-1.0)
[2017-05-11 12:56] LABS: BARBITURATES, UR NEGATIVE (NEGATIVE); BENZODIAZEPINES, UR NEGATIVE (NEGATIVE); OPIATES, UR NEGATIVE (NEGATIVE); PHENCYCLIDINE, UR NEGATIVE (NEGATIVE)
--- NOTE | 2017-05-11 14:56 | PCM.BM ---
<Tamica Moulton - Last Filed: 05/11/17 14:54> Treatment Plan Problems - Problems identified on initial assessmt potential for alcohol withdrawal Date Initiated: 05/11/17 Assessment reference: NA Status: Active Treatment assets and liabiliti Patient Assests: cooperative, ADL independent, physically healthy, negotiates basic needs Patient Liabilities: financial problems, substance abuse, other - Milieu Protocol Maintain good personal hygiene: daily Encourage regular showers, daily Remind patient to perform daily oral care, daily Assist patient to perform ADL's Conduct patient checks and document Observation sheet: Q15 minutes Maintain personal safety: every shift Educate patient to report safety concerns to staff, every shift Monitor environment for contraband/sharps Medication safety: Monitor for expected outcome, potential side effects: every shift, Assess barriers to learning: every shift, Assess readiness for medication education: every shift <Ady Marley - Last Filed: 05/17/17 00:41> - Diagnosis (1) Alcohol use disorder, severe, dependence Status: Acute Interventions: 05/17/17 00:40 * Assess 7x/week regarding severity of withdrawal * Educate regarding risks, benefits, side effects and alternatives of medications * Use Motivational Interviewing for abstinence * Use CBT for relapse prevention * Medication management for withdrawal symptoms * Encourage medication assisted treatment (2) Opioid use disorder, mild, in early remission Status: Acute Interventions: 05/17/17 00:41 * Assess 7x/week regarding severity of withdrawal * Educate regarding risks, benefits, side effects and alternatives of medications * Use Motivational Interviewing for abstinence * Use CBT for relapse prevention * Medication management for withdrawal symptoms * Encourage medication assisted treatment
[2017-05-11] MEDS: Multiple Vitamins Tab PO SCH (17:29)
[2017-05-12] MEDS: Multiple Vitamins Tab PO SCH (10:05)
--- NOTE | 2017-05-12 22:36 | PCM.PSYCH ---
Initial Psychiatric Evaluation - Initial Psychiatric Evaluation Type of Admission: Voluntary Legal Status: Capacity Chief Complaint (in patient's own words): I need help for my alcohol use. History of Present Illness and Precipitating Events: Patient is a 52 years old, single, unemployed, on SSI, male with no psychiatric history, was admitted for withdrawing from alcohol. Patient started drinking alcohol at 12 years of age, increased gradually up to 3 pints of vodka daily. Last used yesterday, 1 pint. Longest history of abstinence was 3 years in the past. History of one previous detox but no rehabs. Patient has history of heroin use in the past. Was using 1 bundle of heroin daily. His last used was November 2016. Before heroin patient was using Percocet pills. Also smokes 2 packs of cigarettes daily and is requesting for nicotine patch. Patient has history of subclinical and hernia repair times for. Patient was also in longterm in the past for aggravated assault. Not on probation. Patient was born in [place] has a fifth grade of education. He was working in the past. 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 Currently on SSI. He is single and has 4 children, ages 28 years, 10 years 6 years and 5 years. His children are from 2 mothers. His 28 years old lives with his mother and other 3 children lives with their mother. Patient lives alone. His height is 5 feet 9 inches and weight is 160 pounds. Current Medications: Active Medications Generic Name Dose Route Start Last Admin Trade Name Freq PRN Reason Stop Dose Admin Chlordiazepoxide 25 mg 05/11/17 18:00 05/12/17 18:04 Librium PO 05/16/17 17:59 25 mg TID GRETA Administration Taper Chlordiazepoxide 25 mg 05/12/17 09:51 Librium PO Q8 PRN Other Clonidine HCl 0.1 mg 05/11/17 16:50 05/12/17 10:04 Catapres PO 0.1 mg Q4H PRN Administration Symptoms of alcohol withdrawl Folic Acid 1 mg 05/11/17 17:00 05/12/17 10:04 Folic Acid PO 1 mg DAILY GRETA Administration Hydroxyzine HCl 25 mg 05/11/17 20:39 05/12/17 21:36 Atarax PO 25 mg Q6H PRN Administration Anxiety Multivitamins 1 tab 05/11/17 17:00 05/12/17 10:05 Hexavitamin PO 1 tab DAILY GRETA Administration Thiamine HCl 100 mg 05/11/17 17:00 05/12/17 10:05 Vitamin B1 Tab PO 100 mg DAILY GRETA Administration Trazodone HCl 50 mg 05/11/17 16:50 05/12/17 21:35 Desyrel PO 50 mg HS PRN Administration Insomnia Past Psychiatric History - Past Psychiatric History Previous Treatment History: None History of Abuse: Refused to talk about abuse. History of ETOH/Drug Use: See HPI History of Family Illness: Reported his maternal grandmother had unknown psychiatric illness Pertinent Medical Hx (Current Medical&Sleep Prob, Allergies): Allergies Allergy/AdvReac Type Severity Reaction Status Date / Time No Known Allergies Allergy Verified 05/11/17 11:09 Ambien 11/23/16 Xanax 11/23/16 Acetaminophen [Tylenol Arthritis] 650 mg PO Q6 #20 tablet.er 11/24/16 Escitalopram [Lexapro] 10 mg PO DAILY #30 tab 01/05/17 Gabapentin [Neurontin] 300 mg PO TID #90 cap 01/05/17 Naltrexone [Revia] 50 mg PO DAILY #30 tab 01/05/17 QUEtiapine [Seroquel] 100 mg PO HS #30 tab 01/05/17 traZODone [Desyrel] 50 mg PO HS #30 tab 01/05/17 Review of Systems - Psychiatric Psychiatric: Anxiety, Other Mental Status Examination - Personal Presentation Personal Presentation: Looks stated age - Affect Affect: Other (Appropriate) - Motor Activity Motor Activity: Calm - Reliability in Providing Information Reliability in Providing Information: Fair - Speech Speech: Organized - Mood Mood: Anxious - Formal Thought Process Formal Thought Process: No Impairment - Hallucinations/Delusions Hallucinations: Other (None reported) Delusions: Other - Obsessions/Compulsions Obsessions: None Compulsions: None - Cognitive Functions Orientation: Person, Place, Situation, Time Sensorium: Alert Attention/Concentration: Attentive Abstract Thinking: Clinton Estimate of Intelligence: Average Judgement: Intact, as evidence by: Insight regarding need for hospitalization Memory: Recent intact, as evidence by: Ability to recall events of the day, Remote intact, as evidenced by: Ability to recall historical events - Risk Risk: Withdrawal, Diminished functioning - Strength & Assets Inventory Strength & Assets Inventory: Cooperative - Limitations Limitations: Living alone DSM 5 DX - DSM 5 DSM 5 Diagnosis: Alcohol use disorder severe Opiate use disorder severe in early remission - Recommended/Plan of Treatment Treatment Recommendations and Plan of Treatment: Patient education Supportive therapy CBT for less prevention [place] for abstinence We'll start Librium detox protocol for alcohol withdrawal symptoms except We'll start other when necessary medications. Patient wants to go to [facility] follow-up care after discharge from the hospital. Projected ELOS: 4-5 days - Smoking Cessation Smoking Cessation Initiated: Yes
[2017-05-13] MEDS: Multiple Vitamins Tab PO SCH (09:12)
--- NOTE | 2017-05-13 15:12 | PCM.PYCHPN ---
Psychiatric Progress Note - Psychiatric Progress Note Patient seen today, length of contact: 15 minute Patient Chief Complaint: I'm feeling little better. Problems Identified/Issues Discussed: Patient seen, chart reviewed, case discussed with the staff Issues related to illness and treatment were discussed with the patient. Reported compliant with treatment with no adverse affects. Reported feeling better with treatment. Mood reported as good. Affect appropriate. Denied any delusions, auditory or visual hallucinations, suicidal ideations or homicidal ideation at the time of evaluation. At the time of evaluation, patient was awake, alert and oriented 3. Memory was also intact. Aftercare discussed with the patient. Patient wants to go to [facility]. Medical Problems: None reported Diagnostic Results: Reviewed DSM 5 Symptoms Update: Improving with treatment Medication Change: No Medical Record Reviewed: Yes Mental Status Examination - Cognitive Function Orientation: Person, Place, Situation, Time Memory: Intact Attention: WNL Concentration: WNL Association: [facility] Fund of Knowledge: [facility] Decription of patient's judgement and insights: Fair - Mood Mood: Anxious - Affect Affect: Other (Appropriate) - Speech Speech: Appropriate - Formal Thought Process Formal Thought Process: No Impairment Psychotic Thoughts and Behaviors: None - Suicidal Ideation Suicidal Ideation: No - Homicidal Ideation Homicidal Ideation: No Goal/Treatment Plan - Goal/Treatment Plan Need for Continued Stay: Remain at risks for inpatient hospitalization, Discharge may exacerbated symptoms, Severe functional impairment Progress Toward Problem(s) and Goals/Treatment Plan: Patient education Supportive therapy CBT for less prevention [place] for abstinence Continue treatment as before Patient wants to go to [facility] follow-up care after discharge from the hospital. Estimated Date of D/C: 05/15/17 - Smoking Cessation Smoking Cessation Initiated: Yes
[2017-05-14] MEDS: Multiple Vitamins Tab PO SCH (10:41)
--- NOTE | 2017-05-14 17:36 | CARD ---
APPROVED REPORT EKG Measurement Heart [id number] <Conclusion> Normal sinus rhythm Normal ECG
--- NOTE | 2017-05-14 21:27 | PCM.PYCHPN ---
Psychiatric Progress Note - Psychiatric Progress Note Patient seen today, length of contact: 15 minute Patient Chief Complaint: I'm feeling much better. Problems Identified/Issues Discussed: Patient seen, chart reviewed, case discussed with the staff Issues related to illness and treatment were discussed with the patient. Reported compliant with treatment with no adverse affects. Reported feeling much better with better sleep. Mood reported as good. Affect appropriate. Denied any delusions, auditory or visual hallucinations, suicidal ideations or homicidal ideation at the time of evaluation. At the time of evaluation, patient was awake, alert and oriented 3. Memory was also intact. Aftercare discussed with the patient. Medical Problems: None reported Diagnostic Results: Reviewed DSM 5 Symptoms Update: Improving with treatment. Medication Change: No Medical Record Reviewed: Yes Mental Status Examination - Cognitive Function Orientation: Person, Place, Situation, Time Memory: Intact Attention: WNL Concentration: WNL Association: WN Fund of Knowledge: [facility] Decription of patient's judgement and insights: Fair - Mood Mood: Anxious (Much less than before) - Affect Affect: Other (Appropriate) - Speech Speech: Appropriate - Formal Thought Process Formal Thought Process: No Impairment Psychotic Thoughts and Behaviors: None - Suicidal Ideation Suicidal Ideation: No - Homicidal Ideation Homicidal Ideation: No Goal/Treatment Plan - Goal/Treatment Plan Need for Continued Stay: Remain at risks for inpatient hospitalization, Discharge may exacerbated symptoms, Severe functional impairment Progress Toward Problem(s) and Goals/Treatment Plan: Patient education Supportive therapy CBT for less prevention [place] for abstinence Continue treatment as before Patient wants to go to [facility] follow-up care after discharge from the hospital. Estimated Date of D/C: 05/15/17 - Smoking Cessation Smoking Cessation Initiated: Yes
[2017-05-15] MEDS: Multiple Vitamins Tab PO SCH (09:11)
--- NOTE | 2017-05-15 11:27 | PCM.PYCHPN ---
Psychiatric Progress Note - Psychiatric Progress Note Patient seen today, length of contact: 15 minute Patient Chief Complaint: I'm feeling much better. Problems Identified/Issues Discussed: Patient seen, chart reviewed, case discussed with the staff Issues related to illness and treatment were discussed with the patient. Reported compliant with treatment with no adverse affects. Reported feeling much better with better sleep. Mood reported as good. Affect appropriate. Denied any delusions, auditory or visual hallucinations, suicidal ideations or homicidal ideation at the time of evaluation. At the time of evaluation, patient was awake, alert and oriented 3. Memory was also intact. Aftercare discussed with the patient. Medical Problems: None reported Diagnostic Results: Reviewed DSM 5 Symptoms Update: Improving with treatment Medication Change: No Medical Record Reviewed: Yes Mental Status Examination - Cognitive Function Orientation: Person, Place, Situation, Time Memory: Intact Attention: WNL Concentration: WNL Association: WN Fund of Knowledge: [facility] Decription of patient's judgement and insights: Fair - Mood Mood: Neutral - Affect Affect: Other (Appropriate) - Speech Speech: Appropriate - Formal Thought Process Formal Thought Process: No Impairment Psychotic Thoughts and Behaviors: None - Suicidal Ideation Suicidal Ideation: No - Homicidal Ideation Homicidal Ideation: No Goal/Treatment Plan - Goal/Treatment Plan Need for Continued Stay: Remain at risks for inpatient hospitalization, Discharge may exacerbated symptoms, Severe functional impairment Progress Toward Problem(s) and Goals/Treatment Plan: Patient education Supportive therapy CBT for less prevention [place] for abstinence Continue treatment as before Patient will go to [facility] for follow-up care after discharge from the hospital. Estimated Date of D/C: 05/17/17 - Smoking Cessation Smoking Cessation Initiated: Yes
--- NOTE | 2017-05-16 07:28 | PCM.PYCHPN ---
Psychiatric Progress Note - Psychiatric Progress Note Patient seen today, length of contact: 15 minute Patient Chief Complaint: I am feeling little better.' Problems Identified/Issues Discussed: Patient seen and evaluated, chart reviewed and discussed with the nurse. Patient still reports withdrawal symptoms including -headaches, and sweating. He reports irritable mood but denies any feelings of hopelessness and helplessness. He denies any SI/HI/AVH. Patient remained isolated, confined and withdrawn. He is taking medication and denies any side effects. He needs more time for stabilization. Supportive therapy and psychoeducation were given. Medication Change: Yes (librium taper) Medical Record Reviewed: Yes Mental Status Examination - Cognitive Function Orientation: Person, Place, Situation, Time Memory: Intact Attention: WNL Concentration: WNL Association: WNL Fund of Knowledge: WNL - Mood Mood: Neutral - Affect Affect: Other (Appropriate) - Speech Speech: Appropriate - Formal Thought Process Formal Thought Process: No Impairment - Suicidal Ideation Suicidal Ideation: No - Homicidal Ideation Homicidal Ideation: No Goal/Treatment Plan - Goal/Treatment Plan Need for Continued Stay: Remain at risks for inpatient hospitalization, Discharge may exacerbated symptoms, Severe functional impairment Progress Toward Problem(s) and Goals/Treatment Plan: Alcohol use disorder severe Opiate use disorder severe in early remission Patient education Supportive therapy CBT for less prevention [place] for abstinence We'll start Librium detox protocol for alcohol withdrawal symptoms except We'll start other when necessary medications. Patient wants to go to [facility] follow-up care after discharge from the hospital. Estimated Date of D/C: 05/17/17 - Smoking Cessation Smoking Cessation Initiated: No
[2017-05-16] MEDS: Multiple Vitamins Tab PO SCH (09:40)
[2017-05-17 09:00] VITALS: BP 125/77; PULSE 77; RESP 20; TEMP 97.6; O2SAT 98
[2017-05-17] MEDS: Multiple Vitamins Tab PO SCH (09:03)
== END 2017-05-17 08:45 | disposition home or self-care (01) | DRG 895 ==
LOC: C.ER 11:03 → C.7D 14:42
PROC: HZ2ZZZZ Detoxification Services for Substance Abuse Treatment (ICD-10-PCS; principal; 2017-05-11)
PROC: HZ59ZZZ Individual Psychotherapy for Substance Abuse Treatment, Supportive (ICD-10-PCS; 2017-05-11)
DX: F10.20 Alcohol dependence, uncomplicated (principal); F11.21 Opioid dependence, in remission; Y90.8 Blood alcohol level of 240 mg/100 ml or more; F17.210 Nicotine dependence, cigarettes, uncomplicated; J44.9 Chronic obstructive pulmonary disease, unspecified; F31.9 Bipolar disorder, unspecified

== ENCOUNTER 2017-08-23 15:51 | Inpatient (IN) | payer MEDICARE ==
[2017-08-23 16:28] VITALS: BMI 22.9
[2017-08-23 17:51] LABS: BASO # 0.1 K/uL (0.0-0.2); BASO % 0.6 % (0.0-2.0); EOS # 0.3 K/uL (0.0-0.7); EOS % 2.7 % (0.0-4.0); HEMOGLOBIN 14.5 g/dL (12.0-18.0); LYMPH # 3.8 K/uL (1.0-4.3); LYMPH % 36.6 % (20.0-40.0); MEAN CELL VOLUME 91.5 fL (80.0-94.0); MEAN CORPUSCULAR HEMOGLOBIN 31.7 pg (27.0-31.0); MEAN CORPUSCULAR HGB CONC 34.6 g/dL (33.0-37.0); MEAN PLATELET VOLUME 8.2 fL (7.2-11.7); MONO # 0.6 K/uL (0.0-0.8); MONO % 6.2 % (0.0-10.0); NEUT # 5.6 K/uL (1.8-7.0); NEUT % 53.9 % (50.0-75.0); NRBC % 0.1 % (0.0-2.0); RBC 4.56 Mil/uL (4.40-5.90); WHITE BLOOD COUNT 10.3 K/uL (4.8-10.8)
--- NOTE | 2017-08-23 17:52 | C.PDOC ---
History Of Present Illness 52 y/o male presents to the ER for evaluation of suicidal ideation. Patient states that he was drinking alcohol and his last drink was 1 hour ago. Denies having homicidal ideation and active physical complaints. Time Seen by Provider: 08/23/17 16:32 Chief Complaint (Nursing): Psychiatric Evaluation History Per: Patient History/Exam Limitations: no limitations Onset/Duration Of Symptoms: Days Current Symptoms Are (Timing): Still Present Severity: Moderate Past Medical History Reviewed: Historical Data, Nursing Documentation, Vital Signs Vital Signs: Last Vital Signs Temp 98.5 F 08/23/17 20:34 Pulse 92 H 08/23/17 20:34 Resp 19 08/23/17 22:22 BP 132/76 08/23/17 20:34 Pulse Ox 96 08/23/17 20:34 - Medical History PMH: Anxiety, Back Problems (chronic), Bipolar Disorder, Bronchitis, COPD, Depression, Fractures (ribs fractured in 2003) Denies: Diabetes, Hepatitis, HIV, HTN, Personality Disorder, Chronic Kidney Disease, Schizophrenia, Seizures, Sexually Transmitted Disease Surgical History: Hernia Repair (umbilical and abdominal) - [facility] Procedures ALCOHOL DETOXIFICATION (02/09/14) DETOXIFICATION SERVICES FOR SUBSTANCE ABUSE TREATMENT (05/11/17) EXCISE CORD/EPID LES NEC (11/10/13) GROUP PSYCHOTHERAPY (09/13/15) INDIV PSYCHOTHERAPY FOR SUBSTANCE ABUSE TREATMENT, SUPPORT (05/11/17) INDIV PSYCHOTHERAPY FOR SUBSTANCE ABUSE, COGNITIV BEHAVIORAL (08/07/16) INDIV PSYCHOTHERAPY FOR SUBSTANCE ABUSE, PSYCHOEDUCATION (08/07/16) MEDICATION MANAGEMENT (09/13/15) NON-INVASIVE MECHANICAL VENTILATION (06/27/12) OTH & OPEN REP OTH HERNIA OF ANTER ABD WALL W GRF OR PROSTH (06/27/12) OTH & OPEN REPAIR INDIRECT INGUINAL HERNIA W GRFT OR PROSTH (11/10/13) Family History: States: No Known Family Hx - Social History Hx Tobacco Use: Yes Hx Alcohol Use: Yes Hx Substance Use: Yes - Immunization History Hx Tetanus Toxoid Vaccination: No Hx Influenza Vaccination: No Hx Pneumococcal Vaccination: No Review Of Systems Except As Marked, All Systems Reviewed And Found Negative. Constitutional: Negative for: Fever, Chills Psych: Positive for: Suicidal ideation Physical Exam - Physical Exam Appears: No Acute Distress Skin: Normal Color, Warm, Dry Head: Atraumatic, Normacephalic Eye(s): bilateral: Normal Inspection Nose: Normal Oral Mucosa: Moist Neck: Supple Chest: Symmetrical Cardiovascular: Rhythm Regular Respiratory: Normal Breath Sounds, No Rales, No Rhonchi, No Wheezing Gastrointestinal/Abdominal: Normal Exam, Soft, No Tenderness, No Guarding, No Rebound Neurological/Psych: Oriented x3, Normal Speech ED Course And Treatment - Laboratory Results Result Diagrams: 08/23/17 17:48 08/23/17 17:48 O2 Sat by Pulse Oximetry: 98 (RA) Pulse Ox Interpretation: Normal Medical Decision Making Medical Decision Making: Plan: --Labs --UA 7:38PM: - Patient is medically cleared. accepted Disposition - Disposition Disposition: HOSPITALIZED Disposition Time: 20:00 Condition: STABLE - Clinical Impression Clinical Impression: Depression - Scribe Statement The provider has reviewed the documentation as recorded by the Scribe Marko Urbina Provider Attestation: All medical record entries made by the Scribe were at my direction and personally dictated by me. I have reviewed the chart and agree that the record accurately reflects my personal performance of the history, physical exam, medical decision making, and the department course for this patient. I have also personally directed, reviewed, and agree with the discharge instructions and disposition. Decision To Admit - Pt Status Changed To: Hospital Disposition Of: Inpatient - Admit Certification Admit to Inpatient:: After my assessment, the patient will require hospitalization for at least two midnights. This is because of the severity of symptoms shown, intensity of services needed, and/or the medical risk in this patient being treated as an outpatient. - InPatient: Physician Admission Certification: I certify that this patient requires 2 or more midnights of care for the following reason:: needs pysch - . Bed Request Type: Regular Admitting Physician: Peter Woodward Patient Diagnosis: Depression
[2017-08-23 17:56] LABS: URINE BACTERIA RARE (<OCC); URINE BILIRUBIN NEGATIVE (NEGATIVE); URINE BLOOD 1+ (NEGATIVE); URINE CLARITY Clear (Clear); URINE COLOR Straw (YELLOW); URINE GLUCOSE (UA) NORMAL (Normal); URINE LEUKOCYTE ESTERASE NEG Leu/uL (Negative); URINE PROTEIN NEGATIVE (NEGATIVE); URINE UROBILINOGEN NORMAL mg/dL (0.2-1.0)
[2017-08-23 18:08] LABS: ALB/GLOB RATIO 1.7 (1.0-2.1); ALBUMIN 4.5 g/dL (3.5-5.0); ALT/SGPT 28 U/L (21-72); AST/SGOT 41 U/L (17-59); BLOOD UREA NITROGEN 10 mg/dL (9-20); CALCIUM 8.9 mg/dl (8.6-10.4); GFR AFRICAN-AMERICAN > 60; GFR NON-AFRICAN AMERICAN > 60
[2017-08-23 18:43] LABS: BARBITURATES, UR NEGATIVE (NEGATIVE); BENZODIAZEPINES, UR NEGATIVE (NEGATIVE); OPIATES, UR NEGATIVE (NEGATIVE); PHENCYCLIDINE, UR NEGATIVE (NEGATIVE)
--- NOTE | 2017-08-23 22:41 | PCM.BM ---
<Lissette Sharp - Last Filed: 08/23/17 22:39> Treatment Plan Problems - Problems identified on initial assessmt Depression Date Initiated: 08/23/17 Time Initiated: 22:40 Assessment reference: NA Status: Active Substance Abuse Date Initiated: 08/23/17 Time Initiated: 22:40 Assessment reference: NA Status: Active Treatment assets and liabiliti Patient Assests: cooperative, ADL independent, physically healthy, negotiates basic needs, cognitively intact Patient Liabilities: live alone, financial problems, poor support system, substance abuse (Cocaine, ETOH BAL 256 ), medical problems (Asthma, Bronchitis) - Milieu Protocol Maintain good personal hygiene: daily Encourage regular showers, daily Remind patient to perform daily oral care, daily Assist patient to perform ADL's (Self) Conduct patient checks and document Observation sheet: Q15 minutes (Safety) Maintain personal safety: every shift Educate patient to report safety concerns to staff, every shift Monitor environment for contraband/sharps Medication safety: Monitor for expected outcome, potential side effects: every shift, Assess barriers to learning: every shift, Assess readiness for medication education: every shift <Maria Elena Clement - Last Filed: 08/25/17 17:26> Family Contact Family involvement: Patient does not wish Family/SO involvement Family contact: Patient declines to allow family contact at present - Goals for Treatment Patient goals for treatment: " I want to go to [facility] rehab." Discharge/Continuing Care - Education Needs Education Needs: Patient Medication, Patient Diagnosis/Disease Process, Patient Coping Skills - Discharge Discharge Criteria: Free of Suicidal thoughts, Normal sleep pattern, Ability to care for self, No longer exhibiting s/s of withdrawal, Reduction of target symptoms Discharge to:: Substance Abuse Rehab - Treatment Team Participation Discussed with Family/SO: No Was Patient/Family/SO present at Treatment Team Meeting: Yes <Peter Woodward - Last Filed: 08/27/17 12:45> - Diagnosis (1) Depression Status: Acute Interventions: 08/27/17 12:45 * Assess/adjust medications daily and /or as needed * See patient on an individual basis 7x/week to assess symptoms of depression * Monitor for side effects & effectiveness of medications * (2) Alcohol abuse Status: Acute Interventions: 08/27/17 12:45 * Assess 7x/week regarding severity of withdrawal * Educate regarding risks, benefits, side effects and alternatives of medications * Use Motivational Interviewing for abstinence * Use CBT for relapse prevention * Medication management for withdrawal symptoms * Encourage medication assisted treatment *
[2017-08-23 22:42] VITALS: O2SAT 98
[2017-08-24] MEDS: Multiple Vitamins Tab PO SCH (09:52)
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
[2017-08-25 06:46] VITALS: RESP 18
[2017-08-25] MEDS: Multiple Vitamins Tab PO SCH (10:15)
--- NOTE | 2017-08-25 14:54 | PCM.PYCHPN ---
Psychiatric Progress Note - Psychiatric Progress Note Patient seen today, length of contact: 15 min Patient Chief Complaint: I was feeling depressed.' Problems Identified/Issues Discussed: Patient seen and evaluated, chart reviewed and discussed with the nurse. Pt still reports depressed mood but reports some improvement in the feelings of hopelessness and helplessness. He is on librium taper and reports withdrawal symptoms including cramps, back pain and sweating He also reports some improvement in sleep. However he remained isolated and withdrawn. He is taking medications and denies any side effects Symptoms are improving but he needs more time for stabilization. Supportive therapy and psychoeducation were given. Medication Change: Yes Medical Record Reviewed: Yes Mental Status Examination - Cognitive Function Orientation: Person, Place, Situation, Time Memory: Intact Attention: WNL Concentration: Poor Association: WNL Fund of Knowledge: Poor - Mood Mood: Depressed, Anxious - Affect Affect: Constricted, Depressed - Speech Speech: Soft - Formal Thought Process Formal Thought Process: No Impairment - Suicidal Ideation Suicidal Ideation: No - Homicidal Ideation Homicidal Ideation: No Goal/Treatment Plan - Goal/Treatment Plan Need for Continued Stay: Severe depression anxiety, Severe functional impairment Progress Toward Problem(s) and Goals/Treatment Plan: Major depressive disorder recurrent severe without psychotic features Alcohol use disorder severe Alcohol withdrawal Cocaine use disorder severe -Psychotherapy -Supportive therapy, group therapy, individual therapy -Atarax 25 mg PO Q6 prn -Trazodone 100 mg PO QHS prn -Seroquel 100 mg PO QHS -Lexapro 10 mg PO Daily -Neurontin 300 mg PO TID -Cogentin 1 mg PO BID -Librium taper -Folic Acid/MVI/Thiamine -Encourage compliance with meds -Refer to outpatient program
[2017-08-26] MEDS: Multiple Vitamins Tab PO SCH (09:52)
[2017-08-26] MEDS ORDERED: Pneumococcal 23-Valent Vaccine IM ONE (10:00)
--- NOTE | 2017-08-26 16:50 | PCM.PYCHPN ---
Psychiatric Progress Note - Psychiatric Progress Note Patient seen today, length of contact: 15 min Patient Chief Complaint: I was feeling depressed.' Problems Identified/Issues Discussed: Mr. Harris reported feeling better since yesterday. He does not have suicidal/ homicidal thoughts. He does not have hallucinations. He still feels depressed when he thinks about the things he has lost, and said he started crying last night. He participated his group activities. His appetite is good, sleep improved, concentration is good, but he does not have any energy and feels withdrawn. He wants to get back to the [employer]. He does not want to take Librium anymore because he says he does not need it. Medication Change: Yes Medical Record Reviewed: Yes Mental Status Examination - Cognitive Function Orientation: Person, Place, Situation, Time Memory: Intact Attention: WNL Concentration: Poor Association: WNL Fund of Knowledge: Poor - Mood Mood: Depressed, Anxious - Affect Affect: Constricted, Depressed - Speech Speech: Soft - Formal Thought Process Formal Thought Process: No Impairment - Suicidal Ideation Suicidal Ideation: No - Homicidal Ideation Homicidal Ideation: No Goal/Treatment Plan - Goal/Treatment Plan Need for Continued Stay: Severe depression anxiety, Severe functional impairment Progress Toward Problem(s) and Goals/Treatment Plan: Major depressive disorder recurrent severe without psychotic features Alcohol use disorder severe Alcohol withdrawal Cocaine use disorder severe -Psychotherapy -Supportive therapy, group therapy, individual therapy -Atarax 25 mg PO Q6 prn -Trazodone 100 mg PO QHS prn -Seroquel 100 mg PO QHS -Lexapro 10 mg PO Daily -Neurontin 300 mg PO TID -Cogentin 1 mg PO BID -Librium taper -Folic Acid/MVI/Thiamine -Encourage compliance with meds -Refer to outpatient program
[2017-08-27] MEDS: Multiple Vitamins Tab PO SCH (09:51)
--- NOTE | 2017-08-27 14:45 | PCM.PYCHPN ---
Psychiatric Progress Note - Psychiatric Progress Note Patient seen today, length of contact: 15 min Patient Chief Complaint: I was feeling depressed and suicidal.' Problems Identified/Issues Discussed: Mr. Harris does not have suicidal/homicidal thoughts, no hallucinations, and mood is okay. He is not depressed and his thoughts are better. His appetite is okay, sleep okay, interest level okay, energy okay, concentration better. He stopped Librium. He agreed with the plan to discharg on Wednesday. Medication Change: Yes Medical Record Reviewed: Yes Mental Status Examination - Cognitive Function Orientation: Person, Place, Situation, Time - Mood Mood: Depressed, Anxious - Affect Affect: Constricted, Depressed - Speech Speech: Soft - Formal Thought Process Formal Thought Process: No Impairment - Suicidal Ideation Suicidal Ideation: No - Homicidal Ideation Homicidal Ideation: No Goal/Treatment Plan - Goal/Treatment Plan Need for Continued Stay: Severe depression anxiety, Severe functional impairment Progress Toward Problem(s) and Goals/Treatment Plan: Major depressive disorder recurrent severe without psychotic features Alcohol use disorder severe Alcohol withdrawal Cocaine use disorder severe -CBT -Psychoeducation -Supportive therapy, group therapy, individual therapy -Trazodone 100 mg by mouth daily at bedtime -Hydroxyzine 25 mg by mouth every 6 hours when necessary -Librium 25 mg po q6hr prn -Librium taper -Seroquel 100 mg PO QHS -Gabapentin 300 mg po TID -Lexapro 10 mg po daily
[2017-08-28] MEDS: Multiple Vitamins Tab PO SCH (09:42)
[2017-08-29 06:45] VITALS: TEMP 97.6
[2017-08-29] MEDS: Multiple Vitamins Tab PO SCH (09:31)
[2017-08-30 06:52] VITALS: BP 133/87; PULSE 68
[2017-08-30] MEDS: Multiple Vitamins Tab PO SCH (10:21)
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
== END 2017-08-30 11:59 | disposition home or self-care (01) | DRG 885 ==
LOC: C.ER 15:51 → C.9E 19:50 → C.5E 20:17
PROVIDERS: ADMIT Psychiatry & Neurology Psychiatry; ATTEND Psychiatry & Neurology Psychiatry
PROC: GZHZZZZ Group Psychotherapy (ICD-10-PCS; principal; 2017-08-23)
DX: F33.2 Major depressive disorder, recurrent severe without psychotic features (principal); R45.851 Suicidal ideations; F10.230 Alcohol dependence with withdrawal, uncomplicated; J44.9 Chronic obstructive pulmonary disease, unspecified; F17.210 Nicotine dependence, cigarettes, uncomplicated; F10.220 Alcohol dependence with intoxication, uncomplicated; F14.10 Cocaine abuse, uncomplicated; Y90.8 Blood alcohol level of 240 mg/100 ml or more

== ENCOUNTER 2017-09-17 09:29 | Emergency (ER) | payer MEDICARE ==
[2017-09-17 09:39] VITALS: BMI 26.5
[2017-09-17 09:40] VITALS: TEMP 99.3
--- NOTE | 2017-09-17 10:24 | C.PDOC ---
History Of Present Illness 52 year old male patient presents to the ER with c/o 4th digit pain on the right foot for 1 week. 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 Pain is a 10/10 and patient states did not take any medication for the pain. Time Seen by Provider: 09/17/17 09:35 Chief Complaint (Nursing): Lower Extremity Problem/Injury History Per: Patient History/Exam Limitations: no limitations Onset/Duration Of Symptoms: Days (x1 week) Current Symptoms Are (Timing): Still Present Pain Scale Rating Of: 10 - Ankle/Foot Description Of Injury: Struck Against Object Past Medical History Reviewed: Historical Data, Nursing Documentation, Vital Signs Vital Signs: Last Vital Signs Temp 99.3 F 09/17/17 09:37 Pulse 85 09/17/17 09:37 Resp 16 09/17/17 09:37 BP 145/81 09/17/17 09:37 Pulse Ox 96 09/17/17 10:27 - Medical History PMH: Anxiety, Back Problems (chronic), Bipolar Disorder, Bronchitis, COPD, Depression, Fractures (ribs fractured in 2003) Surgical History: Hernia Repair (umbilical and abdominal) - [facility] ALCOHOL DETOXIFICATION (02/09/14) DETOXIFICATION SERVICES FOR SUBSTANCE ABUSE TREATMENT (05/11/17) EXCISE CORD/EPID LES NEC (11/10/13) GROUP PSYCHOTHERAPY (08/23/17) INDIV PSYCHOTHERAPY FOR SUBSTANCE ABUSE TREATMENT, SUPPORT (05/11/17) INDIV PSYCHOTHERAPY FOR SUBSTANCE ABUSE, COGNITIV BEHAVIORAL (08/07/16) INDIV PSYCHOTHERAPY FOR SUBSTANCE ABUSE, PSYCHOEDUCATION (08/07/16) MEDICATION MANAGEMENT (09/13/15) NON-INVASIVE MECHANICAL VENTILATION (06/27/12) OTH & OPEN REP OTH HERNIA OF ANTER ABD WALL W GRF OR PROSTH (06/27/12) OTH & OPEN REPAIR INDIRECT INGUINAL HERNIA W GRFT OR PROSTH (11/10/13) Family History: States: No Known Family Hx - Social History Hx Tobacco Use: Yes Hx Alcohol Use: No (PT DENIES) Hx Substance Use: No (PT DENIES) - Immunization History Hx Tetanus Toxoid Vaccination: No Hx Influenza Vaccination: No Hx Pneumococcal Vaccination: No Review Of Systems Except As Marked, All Systems Reviewed And Found Negative. Musculoskeletal: Positive for: Foot Pain (4th digit pain on right foot) Physical Exam - Physical Exam Appears: Non-toxic, No Acute Distress Skin: Warm, Dry Head: Normacephalic Extremity: Normal ROM, Tenderness (4th digit on right foot ), Capillary Refill ( <2 sec), Swelling (4th digit on right foot), No Other (no ecchymosis) Pulses: Left Dorsalis Pedis: Normal, Right Dorsalis Pedis: Normal Neurological/Psych: Oriented x3, Normal Speech, Normal Motor, Normal Sensation, Normal Reflexes Gait: Steady ED Course And Treatment O2 Sat by Pulse Oximetry: 96 (RA) Pulse Ox Interpretation: Normal - Other Rad Right foot 4th digit X-Ray: Interpreted by Me, Viewed By Me Interpretation: No dislocation Medical Decision Making Medical Decision Making: Impression: 4th digit on right foot pain Plans: -- Motrin 600 mg -- Tylenol 975 mg -- XR right foot, 4th digit Reassess: XR shows no dislocation and is discussed with patient. patient is resting comfortably, and is in no acute distress. Patient was instructed to follow up with physician/clinic in 1-2 days for further evaluation. Disposition Counseled Patient/Family Regarding: Studies Performed, Diagnosis, Need For Followup, Rx Given - Disposition Referrals: [facility] [Outside] Disposition: HOME/ ROUTINE Disposition Time: 10:21 Condition: STABLE Prescriptions: Ibuprofen [Motrin] 600 mg PO TID #15 tab Instructions: Contusion (DC) Forms: General Discharge Instructions, [facility] ([place]), Work Excuse - POA Present On Arrival: None - Clinical Impression Clinical Impression: Contusion - Scribe Statement The provider has reviewed the documentation as recorded by the Vipul Gray Do Provider Attestation: All medical record entries made by the Scribe were at my direction and personally dictated by me. I have reviewed the chart and agree that the record accurately reflects my personal performance of the history, physical exam, medical decision making, and the department course for this patient. I have also personally directed, reviewed, and agree with the discharge instructions and disposition.
[2017-09-17 10:40] VITALS: BP 141/80; PULSE 83; RESP 18; O2SAT 97
--- NOTE | 2017-09-17 11:01 | RAD ---
Date of service: 09/17/2017 PROCEDURE: Right 4th toe HISTORY: injury to 4th toe COMPARISON: Not available TECHNIQUE: Three views right foot special attention 4th digit FINDINGS: No evidence of fracture. Joint spaces and articular surfaces are preserved. No soft tissue abnormality appreciated. IMPRESSION: No acute fracture
== END 2017-09-17 10:40 | disposition home or self-care (01) ==
LOC: C.ER 09:29
DX: S90.31XA Contusion of right foot, initial encounter (principal); W22.09XA Striking against other stationary object, initial encounter; Y92.89 Other specified places as the place of occurrence of the external cause; Y99.0 Civilian activity done for income or pay

== ENCOUNTER 2018-03-13 18:31 | Emergency (ER) | payer MEDICARE ==
[2018-03-13 18:31] VITALS: BMI 26.5
[2018-03-13] MEDS ORDERED: Sodium Chloride 0.9% 1,000 ML IV ONE ×2 (19:44→19:49)
--- NOTE | 2018-03-13 19:54 | C.PDOC ---
History Of Present Illness 52 yr old male w/ hx of splenectomy p/w coughing, L sided pleuritic chest pain. He notes pleuritic chest pain x3 weeks, recently worsened over the past couple of days. He notes cough as well, being recently treated by Dr. Chavez w/ amoxicillin without much relief for ?bronchitis. He notes coughing up a brown substance. He denies any chills or night sweats however. No fall or trauma. No BEAUCHAMP. No orthopnea or PND. No leg swellign. No hx of DVT. No other complaints. Time Seen by Provider: 03/13/18 19:23 Chief Complaint (Nursing): Cough, Cold, Congestion Past Medical History Vital Signs: Last Vital Signs Temp 97.9 F 03/13/18 18:52 Pulse 131 H 03/13/18 18:52 Resp 24 03/13/18 18:52 BP 133/87 03/13/18 18:52 Pulse Ox 95 03/13/18 18:52 - Medical History PMH: Anxiety, Back Problems (chronic), Bipolar Disorder, Bronchitis, COPD, Depression, Fractures (ribs fractured in 2003) Denies: Diabetes, Hepatitis, HIV, HTN, Personality Disorder, Chronic Kidney Disease, Schizophrenia, Seizures, Sexually Transmitted Disease Surgical History: Hernia Repair (umbilical and abdominal) - [facility] Procedures ALCOHOL DETOXIFICATION (02/09/14) DETOXIFICATION SERVICES FOR SUBSTANCE ABUSE TREATMENT (05/11/17) EXCISE CORD/EPID LES NEC (11/10/13) GROUP PSYCHOTHERAPY (08/23/17) INDIV PSYCHOTHERAPY FOR SUBSTANCE ABUSE TREATMENT, SUPPORT (05/11/17) INDIV PSYCHOTHERAPY FOR SUBSTANCE ABUSE, COGNITIV BEHAVIORAL (08/07/16) INDIV PSYCHOTHERAPY FOR SUBSTANCE ABUSE, PSYCHOEDUCATION (08/07/16) MEDICATION MANAGEMENT (09/13/15) NON-INVASIVE MECHANICAL VENTILATION (06/27/12) OTH & OPEN REP OTH HERNIA OF ANTER ABD WALL W GRF OR PROSTH (06/27/12) OTH & OPEN REPAIR INDIRECT INGUINAL HERNIA W GRFT OR PROSTH (11/10/13) Family History: States: Unknown Family Hx - Social History Hx Tobacco Use: Yes Hx Alcohol Use: No (PT DENIES) Hx Substance Use: No (PT DENIES) - Immunization History Hx Tetanus Toxoid Vaccination: No Hx Influenza Vaccination: No Hx Pneumococcal Vaccination: No Review Of Systems Constitutional: Negative for: Fever, Chills Eyes: Negative for: Pain, Vision Change ENT: Negative for: Ear Pain, Ear Discharge, Mouth Pain, Mouth Swelling, Throat Pain Cardiovascular: Positive for: Chest Pain. Negative for: Palpitations Respiratory: Positive for: Cough, Shortness of Breath, Pleuritic Pain, Sputum. Negative for: SOB with Excertion Gastrointestinal: Negative for: Nausea, Vomiting, Abdominal Pain, Constipation, Melena, Hematochezia, Hematemesis Genitourinary: Negative for: Dysuria, Frequency, Hematuria Musculoskeletal: Negative for: Neck Pain, Shoulder Pain Skin: Negative for: Rash, Lesions Neurological: Negative for: Weakness, Numbness, Confusion, Seizures, Altered Mental Status, Headache Physical Exam - Physical Exam Appears: Well, Non-toxic, No Acute Distress Skin: Normal Color, Warm Head: Atraumatic, Normacephalic Eye(s): bilateral: Normal Inspection, PERRL, EOMI Ear(s): Bilateral: Normal Nose: Normal, No Flaring, No Discharge Oral Mucosa: Moist Tongue: Normal Appearing, No Swelling, No Lesions, No Laceration, No Bleeding Lips: Normal Appearing, No Swelling, No Contusion Throat: Normal, No Erythema, No Exudate Neck: Normal, Normal ROM, Supple, Other (no meningeal signs) Chest: Symmetrical, No Deformity Cardiovascular: Other (tachy ) Respiratory: Normal Breath Sounds, No Accessory Muscle Use, No Rales Gastrointestinal/Abdominal: Normal Exam Back: Normal Inspection, No CVA Tenderness, No Vertebral Tenderness Extremity: Normal ROM, No Tenderness Extremity: Bilateral: Atraumatic Neurological/Psych: Oriented x3, Normal Speech, Normal Cognition ED Course And Treatment - Laboratory Results Result Diagrams: 03/13/18 20:19 03/13/18 20:08 O2 Sat by Pulse Oximetry: 95 Medical Decision Making Medical Decision Makin yr old male w/ hx of splenectomy p/w pleuritic CP, tachycardia. Well appearing on exam. Recent rx for bronchitis w/ amoxicillin per pt. Given tachy and pleuritic cp w/ will rule out PE. CP only after coughing and deep breaths x3+ days, will seek trop x1 and EKG. No cardiac RF. Heart score low. EK, NSR, no stemi Pending imaging and labs. CT w/ out PNA or blood clot: Notable emphysematous changes with t8 lytic lesion. No Tenderness on exam to thoracic area. No IVDU. No back pain. Likely incidental finding. Overall pic c/w bronchitis. No abd pain. endorsed to Pt regarding lytic lesion and need to f/u w/ pmd. also endorsed adenopathy and need for f/u. pt endorsed understanding. WBC 15k, initially tachy, now resolved. Overall likely viral uri given time frame. remains non-meningeal and without any abd pain. No rash or GI or complaints will rx w/ Zpack, tamiflu given high clinical suspicion of flu and have pt f/u he is agreeable to plan. Disposition - Disposition Referrals: Binh Mccollum MD [Staff Provider] - Chai Chavez MD [Staff Provider] - Disposition: HOME/ ROUTINE Disposition Time: 22:57 Condition: GOOD Additional Instructions: FOLLOW UP WITH YOUR PRIMARY CARE DOCTOR REGARDING YOUR CT RESULTS. YOU HAVE A LESION IN YOUR UPPER BACK WHICH MUCH BE ASSESSED. ALSO YOU HAVE NODULES IN YOUR LUNGS WHICH MUCH BE ASSESSED. RETURN IF NOT FEELING BETTER. Prescriptions: Azithromycin [Z-Jaden] 250 mg PO DAILY #6 tab Oseltamivir Cap [Tamiflu] 75 mg PO BID 5 Days #10 cap Instructions: Influenza (ED), Upper Respiratory Infection (ED), Acute Bronchitis Forms: [facility] ([place]) - Clinical Impression Clinical Impression: Influenza-like illness, Bronchitis
[2018-03-13] MEDS ORDERED: Sodium Chloride 0.9% 1,000 ML ONE (20:03)
[2018-03-13 20:22] LABS: INR 1.2; PROTHROMBIN TIME 12.6 SECONDS (9.7-12.2)
[2018-03-13 20:25] LABS: ALB/GLOB RATIO 1.2 (1.0-2.1); ALBUMIN 4.1 g/dL (3.5-5.0); ALT/SGPT 16 U/L (21-72); AST/SGOT 23 U/L (17-59); BLOOD UREA NITROGEN 15 mg/dL (9-20); CALCIUM 9.2 mg/dl (8.6-10.4); GFR NON-AFRICAN AMERICAN > 60
[2018-03-13 20:25] LABS: BASO # 0.2 K/uL (0.0-0.2); BASO % 1.2 % (0.0-2.0); EOS # 0.2 K/uL (0.0-0.7); EOS % 1.2 % (0.0-4.0); HEMOGLOBIN 13.1 g/dL (12.0-18.0); LYMPH # 2.9 K/uL (1.0-4.3); MEAN CELL VOLUME 91.1 fL (80.0-94.0); MEAN CORPUSCULAR HEMOGLOBIN 29.7 pg (27.0-31.0); MEAN CORPUSCULAR HGB CONC 32.6 g/dL (33.0-37.0); MEAN PLATELET VOLUME 8.2 fL (7.2-11.7); MONO # 1.7 K/uL (0.0-0.8); MONO % 11.4 % (0.0-10.0); NEUT # 10.2 K/uL (1.8-7.0); NEUT % 67.2 % (50.0-75.0); RBC 4.41 Mil/uL (4.40-5.90); RED CELL DISTRIBUTION WIDTH 13.9 % (11.5-14.5); WHITE BLOOD COUNT 15.1 K/uL (4.8-10.8)
[2018-03-13 20:37] LABS: B-TYPE NATRIURETIC PEPTIDE 404 pg/mL (0-900)
[2018-03-13] MEDS ORDERED: Iodixanol 320 MG/ML 100 ML BOTTLE IV ONE (20:51)
[2018-03-13 23:24] VITALS: BP 157/87; PULSE 85; RESP 20; TEMP 98.6
[2018-03-13 23:25] VITALS: O2SAT 95
--- NOTE | 2018-03-14 10:39 | CT ---
Date of service: 03/13/2018 PROCEDURE: CT Chest with contrast (Pulmonary Angiogram) HISTORY: hemoptysis x1 COMPARISON: None available. TECHNIQUE: Axial computed tomography images were obtained of the chest in the pulmonary arterial phase of enhancement. Coronal and sagittal reformatted images were created and reviewed. Intravenous contrast dose: Radiation dose: Total exam DLP = 603.3 mGy-cm. This CT exam was performed using one or more of the following dose reduction techniques: Automated exposure control, adjustment of the mA and/or kV according to patient size, and/or use of iterative reconstruction technique. FINDINGS: PULMONARY ARTERIES: Unremarkable. No pulmonary embolism. AORTA: No acute findings. No thoracic aortic aneurysm. No aortic atherosclerotic calcification or mural plaque present. LUNGS: Bilateral peripheral interstitial changes without consolidation. PLEURAL SPACES: Unremarkable. No effusion or pneumothorax. HEART: Unremarkable. No cardiomegaly. No significant pericardial effusion. LYMPH NODES: Moderate diffuse mediastinal lymphadenopathy. BONES, CHEST WALL: Nonspecific lytic lesion in the T8 vertebral body. OTHER FINDINGS: The soft tissue nodules in the left upper quadrant fat favored to represent accessory spleens. IMPRESSION: No pulmonary embolism. Bilateral interstitial changes as well as mediastinal lymphadenopathy; correlate clinically.
--- NOTE | 2018-03-16 22:30 | CARD ---
APPROVED REPORT Date of service: 03/13/2018 EKG Measurement Heart [id number] <Conclusion> Normal sinus rhythm Normal ECG
== END 2018-03-13 23:45 | disposition home or self-care (01) ==
LOC: C.ER 18:31
DX: J11.1 Influenza due to unidentified influenza virus with other respiratory manifestations (principal); J40 Bronchitis, not specified as acute or chronic; F17.210 Nicotine dependence, cigarettes, uncomplicated
CPT/HCPCS: 71275; 80053; 83880; 84484; 85025; 85610; 85730; 86850; 86900; 87804; 99284; J7030; Q9967